=== PATIENT | female | born 1950 | race Caucasian/White ===

== ENCOUNTER → 2023-05-09 13:16 | Outpatient (REF) | payer MEDICARE, OTHER, SELFPAY | LOC: WOUND 13:16 | PROVIDERS: ATTENDING PHYSICIAN Surgery Plastic and Reconstructive Surgery; REFERRING PHYSICIAN Internal Medicine | DX: L97.812 Non-pressure chronic ulcer of other part of right lower leg with fat layer exposed (principal); S81.821S Laceration with foreign body, right lower leg, sequela; X58.XXXS Exposure to other specified factors, sequela | CPT/HCPCS: 11042; 97597; 99203 ==

== ENCOUNTER → 2023-05-18 09:34 | Outpatient (REF) | payer MEDICARE, OTHER, SELFPAY | LOC: WOUND 09:34 | PROVIDERS: ATTENDING PHYSICIAN Surgery; REFERRING PHYSICIAN Internal Medicine | DX: L97.812 Non-pressure chronic ulcer of other part of right lower leg with fat layer exposed (principal); S81.821A Laceration with foreign body, right lower leg, initial encounter; X58.XXXA Exposure to other specified factors, initial encounter | CPT/HCPCS: 11042; 97605 ==

== ENCOUNTER → 2023-06-05 09:31 | Outpatient (REF) | payer MEDICARE, OTHER, SELFPAY | LOC: WOUND 09:31 | PROVIDERS: ATTENDING PHYSICIAN Surgery; REFERRING PHYSICIAN Internal Medicine | DX: L97.812 Non-pressure chronic ulcer of other part of right lower leg with fat layer exposed (principal); S81.821S Laceration with foreign body, right lower leg, sequela; X58.XXXS Exposure to other specified factors, sequela | CPT/HCPCS: 11042; 97607 ==

== ENCOUNTER → 2023-06-12 09:40 | Outpatient (REF) | payer MEDICARE, OTHER, SELFPAY | LOC: WOUND 09:40 | PROVIDERS: ATTENDING PHYSICIAN Surgery; REFERRING PHYSICIAN Internal Medicine | DX: L97.812 Non-pressure chronic ulcer of other part of right lower leg with fat layer exposed (principal); S81.821A Laceration with foreign body, right lower leg, initial encounter; T14.8XXA Other injury of unspecified body region, initial encounter; X58.XXXA Exposure to other specified factors, initial encounter | CPT/HCPCS: 11042; 97607 ==

== ENCOUNTER 2023-06-14 20:45 | Observation (INO) | payer MEDICARE, OTHER, SELFPAY ==
[2023-06-14 13:49] VITALS: BP 152/88
[2023-06-14 14:12] LABS: % Basophils 0.6 % (0-2); % Eosinophils 1.8 % (0-6); % Immature Granulocytes 0.5 % (0-0.5); % Lymphocytes 36.2 % (20.5-51.1); % Monocytes 9.6 % (1.7-9.3); % Neutrophils 51.3 % (42.2-75.2); Absolute Basophils 0.1 10^3/uL (0-0.2); Absolute Eosinophils 0.2 10^3/uL (0-0.7); Absolute Monocytes 0.8 10^3/uL (0.1-0.6); Absolute Neutrophils 4.2 10^3/uL (1.4-6.5); Hematocrit 36.6 % (37.0-47.0); Hemoglobin 11.8 g/dL (12.0-16.0); Mean Corp Hgb Conc. 32.2 g/dL (33.0-37.0); Mean Corpuscular Hgb 29.4 pg (27.0-31.0); Mean Corpuscular Volume 91.3 fL (81.0-99.0); Mean Platelet Volume 9.4 fL (7.4-10.4); Nucleated Red Blood Cells % 0 %; Platelet Count 260 10^3/uL (130-400); Red Blood Cell Count 4.01 10^6/uL (4.20-5.40); Red Cell Dist. Width 16.4 % (11.5-14.5); White Blood Cell Count 8.3 10^3/uL (4.8-10.8)
[2023-06-14 14:19] LABS: INR 1.03; PT 13.5 Sec (11.4-14.6)
[2023-06-14 14:20] LABS: APTT 26.4 Sec (23.4-35.0)
[2023-06-14 14:30] LABS: ALT (SGPT) 30 U/L (0-35); AST (SGOT) 29 U/L (14-36); Albumin 3.8 g/dl (3.5-5.0); Alkaline Phosphatase 114 U/L (38-126); Blood Urea Nitrogen 16 mg/dl (7-17); Calcium 9.4 mg/dl (8.4-10.2); Carbon Dioxide 27 mmol/L (22-30); Chloride 107 mmol/L (98-107); Glucose 87 mg/dl (70-99); Potassium 4.3 mmol/L (3.5-5.1); Sodium 136 mmol/L (135-145); Total Bilirubin 0.5 mg/dl (0.2-1.3); Total Protein 6.8 g/dl (6.3-8.2); eGFR 59.12
--- NOTE | 2023-06-14 19:12 | ED.CVA ---
History of Present Illness
General
Chief Complaint: CVA/TIA Symptoms
Source: patient
Time Seen by Provider: 06/14/23 16:11
Onset of Stroke Symptoms
Onset of symptoms known: Yes
Date of onset of symptoms: 06/14/23
Time of onset of symptoms: 10:00
Travel History
Have you had any contact with someone who has COVID-19?: No
Do you have any symptoms of coronavirus? Fever > 100 degrees, chills, cough, shortness of breath, sore throat, loss of taste or smell, muscle aches, or headache?: No
History of Present Illness
History of Present Illness:
73-year-old female presents to the emergency room for evaluation after having an episode of not being able to see properly which last about 20 minutes. Patient states that she was looking at objects and could not read them. She tried to use her
phone to text someone and could not use the keyboard properly. After about 20 minutes symptoms resolved and she returned to normal. Patient was advised to come to the emergency room for further evaluation. Patient has a chronic wound on her right
leg and visiting nurse that was coming to check her leg was when the recommend she come to emergency room.
Past History
Past History
ED Past Medical History: CAD, GERD, HTN, Hypercholesterolemia and Other (Rheumatoid arthritis. Chronic inflammatory demyelinating polyneuropathy)
ED Past Surgical History: Cardiac (stents), Orthopedic (Bilateral knee replacements) and Other (cardiac stent x 2. Knee replacement.)
Social History
Tobacco: Non-smoker
Alcohol: None
Drug: None
Personal:
Living: with family
Employment: Retired
Family History
Family History: Other (n/c)
Phy Exam
Physical Exam
Physical Exam:
General: Awake, Alert, Oriented X3. No acute distress.
Vitals: unremarkable
Head: Atraumatic
Eyes: Pupils equal, EOMI
Throat: Airway intact, no exudates
Neck: Trachea midline
Lungs: Clear and equal b/l
Heart: Regular rate, no murmurs
Abd: Soft, Nontender, No pulsatile mass
Neuro: Cranial nerves intact, muscle strength equal bilaterally, cerebellar exam normal
Skin: Warm, dry, no rash
Extremities: pulses equal b/l, no edema
Course
Orders/Labs/Results
Orders:
Orders
06/14/23 14:02
Complete Blood Count/With Diff Urgent
Comprehensive Metabolic Panel Urgent
06/14/23 14:03
PTT Urgent
Prothrombin Time Urgent
06/14/23 16:25
CT Head W/o Iv Contrast Urgent
Comment:
Reason For Exam: confusion/visual chnage
06/14/23 17:21
Carotid US [US Cerebrovascular] Urgent
Comment:
Reason For Exam: tia symptoms
Abnormal Lab Results
06/14/23
14:02
RBC 4.01 L 10^6/uL
(4.20-5.40)
Hgb 11.8 L g/dL
(12.0-16.0)
Hct 36.6 L %
(37.0-47.0)
MCHC 32.2 L g/dL
(33.0-37.0)
RDW 16.4 H %
(11.5-14.5)
Absolute Monos (auto) 0.8 H 10^3/uL
(0.1-0.6)
Monocytes % 9.6 H %
(1.7-9.3)
06/14/23 14:02
06/14/23 14:02
Vital Signs
Initial and Last Documented VS:
Initial Vital Signs
Temp Pulse Resp BP Pulse Ox
98.0 F 63 18 152/88 99
06/14/23 13:49 06/14/23 13:49 06/14/23 13:49 06/14/23 13:49 06/14/23 13:49
Last Documented Vital Signs
Temp Pulse Resp BP Pulse Ox
98.0 F 63 18 152/88 99
06/14/23 13:49 06/14/23 13:49 06/14/23 13:49 06/14/23 13:49 06/14/23 13:49
MDM/Problems Addressed
Differential Diagnosis Includes:
TIA, retinal artery occlusion, ocular migraine
MDM/Problems Addressed:
Patient presents with visual changes which might reflect an ischemic event. CT without contrast is unremarkable. Discussed with neurology. Recommend TIA workup.
Chronic conditions affecting care: HTN and Other (Rheumatoid arthritis)
*Pulse Oximetry
Patient hypoxic: no
*Critical Care Note
Total Time (30-74mins, 75-104mins- exclusive of procedures): Not Applicable
ED Attending Note
-
Portions of this chart may have been created with voice recognition software.� Occasional wrong word or��sound alike� substitutions may have occurred due to the inherent limitations of voice recognition software.
Discharge Plan
Departure
Patient Disposition: Admit
Date of Disposition: 06/14/23
Time of Disposition: 19:13
Admit to: Telemetry
Presentation/result/management discussed w/ accepting MD/DO: Hospitalist
Condition: Fair
Discharge Problem:
Brain TIA
Prescriptions:
No Action
pantoprazole 40 MG tablet,delayed release (DR/EC)
40 mg PO DAILY
prednisone 5 MG tablet
5 mg PO DAILY@1200
Rx Instructions:
taken w/ 3mg = 8mg
cyanocobalamin (vitamin B-12) 1,000 MCG tablet
1,000 mcg PO DAILY@1600
aspirin 81 MG tablet,delayed release (DR/EC)
81 mg PO DAILY
prednisone 1 MG tablet
3 mg PO DAILY@1200
Rx Instructions:
taken w/ 5mg = 8mg
folic acid 1 MG tablet
1 mg PO QPM
metoprolol succinate 12.5 MG tablet extended release 24 hr
12.5 mg PO DAILY@1200
escitalopram oxalate 5 MG tablet
5 mg PO DAILY
cholecalciferol (vitamin D3) 1,000 UNITS tablet
1,000 units PO DAILY@1600
biotin 1 MG capsule
1 mg PO DAILY@1600
methotrexate sodium 2.5 MG tablet
10 mg PO WE@1800
Hold Instructions: Resume on 05/10/23.
nitroglycerin 0.4 MG tablet, sublingual
0.4 mg sublingual [id number] PRN (Reason: chest pain) Qty: 25 5RF
ezetimibe 10 mg tablet
10 mg PO QPM
amlodipine 5 MG tablet
5 mg PO DAILY Qty: 90 5RF
coenzyme Q10 [Co Q-10] 100 mg Capsule
100 mg PO DAILY@1600
Referrals:
Nereyda Ferrera MD [Family Provider] -
Interventions
Interventions:
*Risk Screen - Suicide Last Done: 06/14/23 13:49
*Neglect/Abuse Screening Last Done: 06/14/23 13:49
*ED COVID-19 Vaccine History Last Done: 06/14/23 13:49
ED- Pulmonary Assessment Last Done: 06/14/23 16:12
ED- Neurological Assessment Last Done: 06/14/23 16:28
ED- Cardiac Assessment Last Done: 06/14/23 16:12
--- NOTE | 2023-06-14 19:55 | HPS.HSE ---
Family Physician
-
Family Physician: Nereyda Ferrera
Chief Complaint
-
Reading difficulty
History of Present Illness
Patient is a 73y F with PMH significant for CIDP, RA and chronic immunosuppression who presents to ED complaining of reading difficulty this AM. Patient states that she has been feeling well lately. She went for a long walk this AM with her
dog. When she returned home around 10AM, she noted that she was having difficulty comprehending written words. Patient did not appreciate and speech slurring or deficits. No numbness / tingling / weakness / ataxia. Patient states that she could
'see' and 'read' the words, but was not able to understand what they meant.
She attempted to text a friend, but was unable to type into her phone / could not 'find' the letter 'K'.
Patient states that her symptoms lasted about 30 minutes in total. Since that time, she has been able to use her phone, read and comprehend writing with no difficulty.
Patient notes that her friend and her wound care nurse at home both encouraged her to present to the ED which she eventually did.
Patient reports a similar episode about 5 years ago. She was evaluated by her outpatient Neurologist at that time and completed an outpatient evaluation which patient says was 'unremarkable'.
In the ED at present, patient is resting comfortably and has no complaints.
Medical History
Past Medical History
Past Medical History: Reports Other
Additional Past Medical History:
CIDP
Rheumatoid Arthritis
Chronic Immunosuppression
Hypertension
ASCVD
GERD
Anxiety / Depression
Past Surgical History: Reports Other
Additional Past Surgical History:
PTCA with Stent x 2
Bilateral TKA
RLE wound Debridement (04/2023)
Social History
Tobacco: Non-smoker
Alcohol: None
Drug: None
Family History
Family History: Not pertinent
Allergies / Home Medications
Allergies reflects when Allergies were last updated in [facility].
Home Medications with original date entered in [facility]
Allergy/Medication List:
Allergies
Allergy/AdvReac Type Severity Reaction Status Date / Time
STEPHEN Inhibitors Allergy Unknown Verified 06/14/23 13:48
[Stephen Inhibitors]
iodine [Iodine] Allergy Hives Verified 06/14/23 13:48
potassium iodide Allergy Unknown Verified 06/14/23 13:48
[Potassium Iodide]
povidone-iodine Allergy Unknown Verified 06/14/23 13:48
Home Medications
pantoprazole 40 mg tablet,delayed release 40 mg PO DAILY Gastrointestinal issue 12/02/18
aspirin 81 mg tablet,delayed release 81 mg PO DAILY Blood clot prevention/tx 08/10/20
biotin 1 mg capsule 1 mg PO DAILY@1600 Supplement 08/10/20
cholecalciferol (vitamin D3) 25 mcg (1,000 unit) tablet 1,000 units PO DAILY@1600 Supplement 08/10/20
cyanocobalamin (vitamin B-12) 1,000 mcg tablet 1,000 mcg PO DAILY@1600 Supplement 08/10/20
escitalopram oxalate 5 mg tablet 5 mg PO DAILY Anxiety 08/10/20
folic acid 1 mg tablet 1 mg PO QPM Supplement 08/10/20
metoprolol succinate 25 mg tablet,extended release 24 hr 12.5 mg PO DAILY@1200 Cad/PAC's 08/10/20
prednisone 1 mg tablet 3 mg PO DAILY@1200 chronic inflammatory demylenating polyneuropathy 08/10/20
prednisone 5 mg tablet 5 mg PO DAILY@1200 chronic inflammatory demyelinating polyneuropathy 08/10/20
methotrexate sodium 2.5 mg tablet 10 mg PO WE@1800 rheumatoid arthritis 10/23/20
nitroglycerin 0.4 mg sublingual tablet 0.4 mg sublingual [id number] PRN chest pain #25 tabs 10/23/20
ezetimibe 10 mg tablet 10 mg PO QPM High Cholesterol 04/19/23
amlodipine 5 mg tablet 5 mg PO DAILY Blood pressure #90 tabs 04/21/23
coenzyme Q10 100 mg capsule (Co Q-10) 100 mg PO DAILY@1600 Supplement 06/14/23
Review of Systems
-
History Source: Patient
Constitutional: Denies Fever or Chills
Respiratory: Denies Cough or Trouble Breathing
Cardiac: Denies Chest Pain or Palpitations
Abdomen/GI: Denies Abdominal Pain, Nausea, Vomiting or Diarrhea
: Denies Dysuria, Frequency or Flank Pain
Musculoskeletal: Denies Joint Pain or Edema
Skin: Reports Other (RLE Wound)
Neurological: Denies Dizzy, Headache, Weakness or Numbness
Psych: Denies Depression or Anxiety
Physical Exam
Vital Signs
Vital Signs
Temp Pulse Resp BP Pulse Ox
98.0 F 63 18 152/88 99
06/14/23 13:49 06/14/23 13:49 06/14/23 13:49 06/14/23 13:49 06/14/23 13:49
Physical Exam
General: Other (73y F in no acute distress.)
HEENT: Moist mucous membranes and PERRLA
Respiratory: Clear; No Wheezes, Rales or Rhonchi
Cardiac: S1/S2 and Regular Rhythm; No Murmur
GI: Soft, Non Tender, Non Distended and Normal Bowel Sounds
Musculoskeletal: No Clubbing, No Cyanosis and Other (Trace edema R > L ankles.)
Skin: Other (Wound RLE with wound vac in place. No surrounding erythema, induration, etc.)
Neuro: AO x 3 and Nonfocal/grossly intact
Laboratory Results
-
06/14/23 14:02
06/14/23 14:02
Laboratory Results
PT 13.5 Sec (11.4-14.6) 06/14/23 14:03
INR 1.03 06/14/23 14:03
APTT 26.4 Sec (23.4-35.0) 06/14/23 14:03
Total Bilirubin 0.5 mg/dl (0.2-1.3) 06/14/23 14:02
AST 29 U/L (14-36) 06/14/23 14:02
ALT 30 U/L (0-35) 06/14/23 14:02
Alkaline Phosphatase 114 U/L (38-126) 06/14/23 14:02
Impression/Plan
-
A/P: Patient is a 73y F with PMH significant for CIDP, RA and hypertension who presents to ED for evaluation of reading difficulty earlier today.
Reading Difficulty
- Observe overnight for further evaluation and treatment.
- Monitor on tele, follow serial neurologic exams.
- Neuro evaluation in the AM.
- Check MR brain in the AM.
- Results from prior episode reviewed (2019).
- MRI at that time:
IMPRESSION: Numerous foci of old cerebral microhemorrhage, distribution as described. The most common etiologies for cerebral microhemorrhages are chronic hypertensive encephalopathy and amyloid angiopathy. Distribution is not considered
characteristic for either of these processes alone. Perhaps this is a combination of these 2 processes.
Moderate to severe T2 and FLAIR white matter hyperintensities, which become confluent in the periventricular region. These hyperintensities are not entirely specific, most commonly seen in association with small vessel ischemic disease, which would
be advanced for this patient's age of 69 years. Differential considerations include demyelinating process such as multiple sclerosis or Lyme disease. Vasculitis is another consideration.
There is no MR evidence of a focal area of infarction.
Mild diffuse atrophy.
- Continue ASA alone for now given concern for microhemorrhages / amyloidosis.
- Monitor for any new / recurrent symptoms.
- Speech eval in the AM.
- Check AM lipids, etc.
ASCVD
Benign Hypertension
- Stable. Continue current medications and adjust as needed for BP control.
RLE Wound
- Initially admitted here 04/2023 following injury.
- Debridement done at that time and wound vac in place since.
- Wound Care evaluation for continued local care / vac management.
CIDP
RA
- Stable. Continue daily prednisone without changes.
- Monitor for any new / worsening symptoms.
Anxiety / Depression
- Stable. Continue Lexapro.
DVT Prophylaxis: No SCDs given LE wound / vac. No pharm prophylaxis given risk of CATERING ADMINISTRATIVE ASSISTANT bleeding.
Code Status: Full
[2023-06-14] MEDS: PLAVIX 75 MG PO (20:09)
[2023-06-14 20:13] VITALS: BP 155/81
[2023-06-14 21:43] VITALS: BP 155/77; BMI 24.0
[2023-06-14 22:51] LABS: TSH Reflex To Free T4 0.94 uIU/ml (0.47-4.68)
[2023-06-14] MEDS: FOLVITE 1 MG PO (22:59)
[2023-06-14] MEDS: METHOTREXATE 10 MG PO (22:59)
[2023-06-14 23:24] VITALS: BP 135/89; BP 139/76; BP 150/90; PULSE 56; PULSE 62; PULSE 70
[2023-06-15 03:56] VITALS: BP 136/81
--- NOTE | 2023-06-15 05:24 | PTCARENOTE ---
Pt received from ED around 2134. Ambulated from stretcher to bed independently without incident. Telemetry = SR. Pt with own wound vac to R lower medial leg set to - 125 mmHg. Oriented to surroundings and plan of care discussed. Admission and
assessment completed. Neuro check WNL, NIHSS = 0. Pt due for weekly dose of methrotrexate and has not taken yet. [facility] covering house contacted, electronic orders received (refer to JUL). Pt offers no complaints. #20 LAC INT patent. Call vásquez
within reach. Will continue to closely monitor.
[2023-06-15 05:37] VITALS: BMI 23.8
--- NOTE | 2023-06-15 07:12 | CON.NEURO4 ---
Consultation - Neurology 4
-
CONSULTING PHYSICIAN: Gillian Molina
REFERRING PHYSICIAN: ER
DICTATED BY: Gillian Molina
DATE/TIME OF REQUEST: 06/15/23
DATE/TIME OF CONSULTATION: 06/15/23
Reason for Consultation: Concern for TIA
History of Present Illness:
Patient is a 73-year-old woman with a past medical history of hypertension, coronary artery disease, CIDP rheumatoid arthritis on immunosuppression presented to hospital because of episode of abnormal behavior and possible confusion.
Patient describes the episode as some changes in vision with some tilting of kitchen drawers and cabinets in her vision and then having a lot of difficulty selecting a particular letter on her phone, she was talking to her friend which was concerned
about her behaviors with concern for potential stroke or other brain problems.
Patient reports she has had intermittent speech difficulty after a divorce.
She sees a neurologist regularly for history of CIDP and she does relate that she thinks that the neurologist had told her about a brain MRI abnormality suggestive of amyloid in the.
Currently patient feels back to normal no complaints currently.
Past Medical History: CIDP, Rheumatoid arthritis, hypertension, GERD, Anxiety/depression, CAD s/p stent
Surgical History: Bilateral TKA, RLE wound debridement, 2x coronary stents
Family History: Non-contributory
Social History: Retired, lives on her own, no tobacco or alcohol
Review of Symptoms:
Patient denies any fever, headache, chest pain, shortness of breath, GI or symptoms.
Physical Exam:
Well-appearing middle-aged woman no acute distress no signs of head or neck trauma oropharynx clear neck supple no masses heart rate regular breathing unlabored abdomen soft nontender no lower extremity edema or rash
Neurologic Examination:
The patient is awake, alert and oriented x 3. He is able to follow commands and answer questions appropriately. There is no aphasia or dysarthria. On cranial nerve assessment, pupils are 3 mm bilateral, round and reactive to light and
accommodation. Visual hahn are full. Extraocular movements are intact. Facial sensations are intact and bilaterally symmetrical, there is no facial asymmetry. Hearing is intact bilaterally to normal conversation volume. Tongue palate and uvula
are midline. Sternocleidomastoid strengths are full bilaterally. Motor strengths are 5/5 bilateral upper and lower extremities on medical research Stebbins scale. There is no drift or involuntary movement noted. Absent reflexes throughout.
Coordination is intact by finger to nose bilaterally.
Neuro Imaging: CT head noncontrast with no acute infarct or hemorrhage no masses or edema, there is moderate white matter microangiopathy as seen with hypodensities in the white matter of the hemispheres bilaterally
MRI brain highly suggestive of amyloid angiopathy with numerous chronic microhemorrhages in subcortical and cortical areas
Impressions
1. Episode of confusion may have been due to a known amyloid angiopathy of the brain, may be also producing some mild cognitive impairment. The episode is less typical for TIA. Not concerned for seizure.
2. MRI with no acute stroke
3.
4.
Recommendations:
1. Okay for continuing aspirin given a history of coronary artery disease and stent as strong indications for antiplatelet therapy and patient has never had an overt intracranial hemorrhage
2. Minimize sedating medications
3. Goal normotension
4. Stop clopidogrel.
5. Continue to follow with her outpatient neurologist
6. Not recommending any further neurologic workup or monitoring
Discussed patient care with: Patient
NIH Stroke Score
Subsequent NIH Scale
Date of Subsequent NIH Scale: 06/15/23
Time of Subsequent NIH Scale: 12:49
NIH Stroke Score
Level of Consciousness: 0 - Alert
LOC Questions: 0-Answers both correctly
LOC Commands: 0-Performs both correctly
Best Horizontal Gaze: 0-Normal
Visual Hahn: 0=Normal, no visual loss
Facial Palsy: 0=Normal, symmetrical
Motor - Right Arm: 0=No drift 10 seconds
Motor - Left Arm: 0=No drift 10 seconds
Motor - Right Le-No drift 5 seconds
Motor - Left Le-No drift 5 seconds
Limb Ataxia: 0-Absent
Sensation: 0-Normal
Best Language: 0-No aphasia
Dysarthria: 0-Normal
Extinction and Inattention: 0-No abnormality
Total Score:: 0
Home Medications
-
Home Medications
pantoprazole 40 mg tablet,delayed release 40 mg PO DAILY Gastrointestinal issue 12/02/18
aspirin 81 mg tablet,delayed release 81 mg PO DAILY Blood clot prevention/tx 08/10/20
biotin 1 mg capsule 1 mg PO DAILY@1600 Supplement 08/10/20
cholecalciferol (vitamin D3) 25 mcg (1,000 unit) tablet 1,000 units PO DAILY@1600 Supplement 08/10/20
cyanocobalamin (vitamin B-12) 1,000 mcg tablet 1,000 mcg PO DAILY@1600 Supplement 08/10/20
escitalopram oxalate 5 mg tablet 5 mg PO DAILY Anxiety 08/10/20
folic acid 1 mg tablet 1 mg PO QPM Supplement 08/10/20
metoprolol succinate 25 mg tablet,extended release 24 hr 12.5 mg PO DAILY@1200 Cad/PAC's 08/10/20
prednisone 1 mg tablet 3 mg PO DAILY@1200 chronic inflammatory demylenating polyneuropathy 08/10/20
prednisone 5 mg tablet 5 mg PO DAILY@1200 chronic inflammatory demyelinating polyneuropathy 08/10/20
methotrexate sodium 2.5 mg tablet 10 mg PO WE@1800 rheumatoid arthritis 10/23/20
nitroglycerin 0.4 mg sublingual tablet 0.4 mg sublingual [id number] PRN chest pain #25 tabs 10/23/20
ezetimibe 10 mg tablet 10 mg PO QPM High Cholesterol 04/19/23
amlodipine 5 mg tablet 5 mg PO DAILY Blood pressure #90 tabs 04/21/23
coenzyme Q10 100 mg capsule (Co Q-10) 100 mg PO DAILY@1600 Supplement 06/14/23
Vital Signs / Labs
-
Vital Signs and Labs:
Temp Pulse Resp BP Pulse Ox
97.9 F 66 18 136/81 95
06/15/23 03:56 06/15/23 03:56 06/15/23 03:56 06/15/23 03:56 06/15/23 03:56
06/14/23
14:02
RBC 4.01 L
Hgb 11.8 L
Hct 36.6 L
MCHC 32.2 L
RDW 16.4 H
Absolute Monos (auto) 0.8 H
Monocytes % 9.6 H
[2023-06-15] MEDS: PLAVIX 75 MG PO (07:43)
[2023-06-15] MEDS: LEXAPRO 5 MG PO (07:43)
[2023-06-15] MEDS: ASPIR LOW (ENTERIC COATED) 81 MG PO (07:43)
[2023-06-15] MEDS: PROTONIX 40 MG PO (07:43)
[2023-06-15] MEDS: NORVASC 5 MG PO (07:43)
[2023-06-15 07:54] LABS: Hemoglobin 11.5 g/dL (12.0-16.0); Mean Corp Hgb Conc. 32.9 g/dL (33.0-37.0); Mean Corpuscular Hgb 29.3 pg (27.0-31.0); Mean Corpuscular Volume 89.3 fL (81.0-99.0); Mean Platelet Volume 9.8 fL (7.4-10.4); Platelet Count 264 10^3/uL (130-400); Red Blood Cell Count 3.92 10^6/uL (4.20-5.40); Red Cell Dist. Width 16.4 % (11.5-14.5)
--- NOTE | 2023-06-15 08:33 | VNURNOTE ---
Patient is current with [facility] since 04/23 with [facility] for wound care. Will monitor progress and plan at discharge.
[2023-06-15 08:35] LABS: Blood Urea Nitrogen 12 mg/dl (7-17); Calcium 8.7 mg/dl (8.4-10.2); Carbon Dioxide 26 mmol/L (22-30); Chloride 109 mmol/L (98-107); Estimated Creatinine Clearance 45 ml/min; Glucose 73 mg/dl (70-99); HDL Cholesterol 97 mg/dl; LDL Cholesterol, Calculated 67 mg/dl; Potassium 4.5 mmol/L (3.5-5.1); Sodium 136 mmol/L (135-145); Total Cholesterol 180 mg/dl (50-199); Triglyceride 84 mg/dl (10-149); Very Low Density Lipoprotein 16 mg/dl (0-30); eGFR > 60.00
--- NOTE | 2023-06-15 11:15 | WOUNDNOTE ---
[facility] RN note: Patient admitted with TIA. Patient current with [facility] for wound vac dressings. Last changed yesterday by [facility]. Patient last seen by Dr. Kolb at [facility] on 06/12/23.
See H&P for complete history.
PMH: CIDP, RA (prednisone), HTN, ASCVD, anxiety, PTCA with stent x 2, RLE wound s/p bedside debridement 04/20/23.
Wound Location and type/assessment: Patient admitted with: R anterior LE wound with wound vac.
Appetite: on regular diet.
Pressure redistribution devices in place: Accumax mattress.
Plan: Spoke with Dr. Kolb this am who stated can leave vac dressing in place until tomorrow when next vac dressing is due to be changed. RLE vac dressing intact without erythema, home vac setting at 125mmhg.
Will confirm orders with hospitalist and updated RN Margy.
Care plan to be updated and will follow as needed.
[2023-06-15 11:44] VITALS: BP 110/70; BP 128/89; BP 154/79; PULSE 62; PULSE 65; PULSE 83
[2023-06-15] MEDS: DELTASONE 5 MG PO (12:49)
[2023-06-15] MEDS: TOPROL XL 12.5 MG PO (12:49)
[2023-06-15] MEDS: DELTASONE 3 MG PO (12:49)
--- NOTE | 2023-06-15 13:03 | W.PN.HOSP.TC ---
Addendum entered and electronically signed by Cortes Jaimes MD 06/18/23 15:22:
[id number]
Original Note:
Today's Communication/Plan
-
asa
stop clopidogrel
f/u outpatient neurology
Assessment / Plan
Assessment / Plan
Physical Exam
General: Other (73y F in no acute distress.)
HEENT: Moist mucous membranes and PERRLA
Respiratory: Clear; No Wheezes, Rales or Rhonchi
Cardiac: S1/S2 and Regular Rhythm; No Murmur
GI: Soft, Non Tender, Non Distended and Normal Bowel Sounds
Musculoskeletal: No Clubbing, No Cyanosis and Other (Trace edema R > L ankles.)
Skin: Other (Wound RLE with wound vac in place.� No surrounding erythema, induration, etc.)
Neuro: AO x 3 and Nonfocal/grossly intact
A/P:� Patient is a 73y F with PMH significant for CIDP, RA and hypertension who presents to ED for evaluation of reading difficulty earlier today.
Reading Difficulty
Possibly secondary to amyloid angiopathy
Mild cognitive impairment
� Episode lasted for TIA, less likely seizure
� MRI with no acute stroke
� MRI with evidence of possible amyloid angiopathy of the brain
� Continue aspirin given CAD, never has had over intracranial hemorrhage
� Normotension
� Stop clopidogrel
- Follow-up outpatient neurology
-Speech eval
ASCVD
Benign Hypertension
�- Stable.� Continue current medications and adjust as needed for BP control.
RLE Wound
�- Initially admitted here 04/2023 following injury.
�- Debridement done at that time and wound vac in place since.
�- Wound Care evaluation for continued local care / vac management.
CIDP
RA
�- Stable.� Continue daily prednisone without changes.
�- Monitor for any new / worsening symptoms.
Anxiety / Depression
�- Stable.� Continue Lexapro.
DVT Prophylaxis: No SCDs given LE wound / vac.� No pharm prophylaxis given risk of HEAVY TRUCK TECHNICIAN bleeding.
Code Status: Full
More than 30 minutes spent in discharge including
Final examination of the patient
Summarizing hospital stay
Instructions for continuing care to all relevant caregivers
Preparation of discharge records, prescriptions, and referral forms
Total time spent (35 in minutes):
Anticipated Discharge: Today
Subjective/Interval History
-
Date of Service: June 15, 2023
no acute events
Objective Data
-
Labs:
Laboratory Results
06/15/23
06:26
WBC 6.0
Hgb 11.5 L
Hct 35.0 L
Plt Count 264
Sodium 136
Potassium 4.5
Chloride 109 H
Carbon Dioxide 26
BUN 12
Creatinine 0.9
Glucose 73
Calcium 8.7
Vital Signs:
Vital Signs
Temp Pulse Resp BP Pulse Ox
97.8 F 66 18 136/81 95
06/15/23 11:44 06/15/23 03:56 06/15/23 11:44 06/15/23 03:56 06/15/23 03:56
I&O
06/14/23 06/15/23 06/16/23
06:59 06:59 06:59
Intake Total 120 / 120
Balance 120 / 120
Review of Systems
-
History Source: Patient
All other systems: Not reviewed unless documented
Data Reviewed
-
CT Scan: Image personally visualized and interpreted and Report Reviewed by me
MRI: Report Reviewed by me
Labs: Labs Reviewed by me
--- NOTE | 2023-06-15 13:08 | W.DS.TRANS ---
DC Summary - Payment Processor
-
Discharge Instructions:
Discharge Diagnosis/Procedures Episode of confusion may have been due to a
known amyloid angiopathy of the brain, may be
also producing some mild cognitive impairment.
Diet Low Cholesterol,Low Fat
Activity As tolerated
Instructions:
Stand-Alone Forms:
Changes to Home Medications: Yes
Discharge Medications:
DC Medications w/original date entered in [email or web address]
pantoprazole 40 mg tablet,delayed release 40 mg PO DAILY Gastrointestinal issue 12/02/18
aspirin 81 mg tablet,delayed release 81 mg PO DAILY Blood clot prevention/tx 08/10/20
biotin 1 mg capsule 1 mg PO DAILY@1600 Supplement 08/10/20
cholecalciferol (vitamin D3) 25 mcg (1,000 unit) tablet 1,000 units PO DAILY@1600 Supplement 08/10/20
cyanocobalamin (vitamin B-12) 1,000 mcg tablet 1,000 mcg PO DAILY@1600 Supplement 08/10/20
escitalopram oxalate 5 mg tablet 5 mg PO DAILY Anxiety 08/10/20
folic acid 1 mg tablet 1 mg PO QPM Supplement 08/10/20
metoprolol succinate 25 mg tablet,extended release 24 hr 12.5 mg PO DAILY@1200 Cad/PAC's 08/10/20
prednisone 1 mg tablet 3 mg PO DAILY@1200 chronic inflammatory demylenating polyneuropathy 08/10/20
prednisone 5 mg tablet 5 mg PO DAILY@1200 chronic inflammatory demyelinating polyneuropathy 08/10/20
methotrexate sodium 2.5 mg tablet 10 mg PO WE@1800 rheumatoid arthritis 10/23/20
nitroglycerin 0.4 mg sublingual tablet 0.4 mg sublingual [id number] PRN chest pain #25 tabs 10/23/20
ezetimibe 10 mg tablet 10 mg PO QPM High Cholesterol 04/19/23
amlodipine 5 mg tablet 5 mg PO DAILY Blood pressure #90 tabs 04/21/23
coenzyme Q10 100 mg capsule (Co Q-10) 100 mg PO DAILY@1600 Supplement 06/14/23
Home Medication Changes
Stop Clopigrel if using
Pending Results: No
--- NOTE | 2023-06-15 14:28 | CM ---
Met with patient at bedside; initial assessment completed
KABA explained and signed
Pharmacy: [facility]
Patient lives alone in one floor apartment; elevator access; bathroom has tub with shower and grab bar
Son lives about an hour away; reports that she has friends nearby who can help her if she needs assistance
PLOF: reports she is independent with ambulation and ADLs; can do stairs if necessary; drives
SNF/Rehab utilization history: none
Home Care: will resume home care with [facility]
Transport: friend will provide ride home
Plan: discharge to home today with home care services from [facility]
--- NOTE | 2023-06-15 15:26 | VNURNOTE ---
[facility] intake notified of discharge, patient in OBS status.
== END 2023-06-15 14:51 | disposition home health service (06) ==
LOC: 4 WEST ACU 20:45
PROVIDERS: Emergency Medicine; ADMITTING PHYSICIAN Hospitalist; ATTENDING PHYSICIAN Internal Medicine; EMERGENCY PHYSICIAN Emergency Medicine; FAMILY PHYSICIAN Internal Medicine; OTHER PHYSICIAN Student in an Organized Health Care Education/Training Program
DX: R41.0 Disorientation, unspecified (principal); I10 Essential (primary) hypertension; M06.9 Rheumatoid arthritis, unspecified; E78.00 Pure hypercholesterolemia, unspecified; K21.9 Gastro-esophageal reflux disease without esophagitis; G61.81 Chronic inflammatory demyelinating polyneuritis; S81.831D Puncture wound without foreign body, right lower leg, subsequent encounter; X58.XXXD Exposure to other specified factors, subsequent encounter; D84.821 Immunodeficiency due to drugs; I25.10 Atherosclerotic heart disease of native coronary artery without angina pectoris; R93.0 Abnormal findings on diagnostic imaging of skull and head, not elsewhere classified; Z95.5 Presence of coronary angioplasty implant and graft; Z96.653 Presence of artificial knee joint, bilateral; Z79.52 Long term (current) use of systemic steroids; Z79.82 Long term (current) use of aspirin; Z79.69 Long term (current) use of other immunomodulators and immunosuppressants; F41.9 Anxiety disorder, unspecified; F32.A Depression, unspecified; Z88.8 Allergy status to other drugs, medicaments and biological substances; Z91.041 Radiographic dye allergy status
CPT/HCPCS: 70450; 70544; 70551; 80048; 80053; 80061; 84443; 85025; 85027; 85610; 85730; 93005; 93880; 99285; G0378; J8610

== ENCOUNTER → 2023-06-19 13:31 | Outpatient (REF) | payer MEDICARE, OTHER, SELFPAY | LOC: WOUND 13:31 | PROVIDERS: ATTENDING PHYSICIAN Surgery; REFERRING PHYSICIAN Internal Medicine | DX: L97.812 Non-pressure chronic ulcer of other part of right lower leg with fat layer exposed (principal); S81.821S Laceration with foreign body, right lower leg, sequela; X58.XXXS Exposure to other specified factors, sequela | CPT/HCPCS: 11042; 97605 ==

== ENCOUNTER → 2023-06-27 13:46 | Outpatient (REF) | payer MEDICARE, OTHER, SELFPAY | LOC: WOUND 13:46 | PROVIDERS: ATTENDING PHYSICIAN Surgery; FAMILY PHYSICIAN Internal Medicine | DX: S81.821A Laceration with foreign body, right lower leg, initial encounter (principal); L97.812 Non-pressure chronic ulcer of other part of right lower leg with fat layer exposed; T14.8XXA Other injury of unspecified body region, initial encounter; W54.0XXA Bitten by dog, initial encounter | CPT/HCPCS: 11042 ==

== ENCOUNTER → 2023-07-03 13:04 | Outpatient (REF) | payer MEDICARE, OTHER, SELFPAY | LOC: WOUND 13:04 | PROVIDERS: ATTENDING PHYSICIAN Surgery; FAMILY PHYSICIAN Internal Medicine | DX: S81.821A Laceration with foreign body, right lower leg, initial encounter (principal); L97.812 Non-pressure chronic ulcer of other part of right lower leg with fat layer exposed; T14.8XXA Other injury of unspecified body region, initial encounter; X58.XXXA Exposure to other specified factors, initial encounter | CPT/HCPCS: 11042 ==

== ENCOUNTER → 2023-07-10 13:29 | Outpatient (REF) | payer MEDICARE, OTHER, SELFPAY | LOC: WOUND 13:29 | PROVIDERS: ATTENDING PHYSICIAN Surgery; FAMILY PHYSICIAN Internal Medicine | DX: L97.812 Non-pressure chronic ulcer of other part of right lower leg with fat layer exposed (principal); S81.821A Laceration with foreign body, right lower leg, initial encounter; T14.8XXA Other injury of unspecified body region, initial encounter; X58.XXXA Exposure to other specified factors, initial encounter | CPT/HCPCS: 11042 ==

== ENCOUNTER → 2023-07-17 13:23 | Outpatient (REF) | payer MEDICARE, OTHER, SELFPAY | LOC: WOUND 13:23 | PROVIDERS: ATTENDING PHYSICIAN Surgery; FAMILY PHYSICIAN Internal Medicine | DX: L97.812 Non-pressure chronic ulcer of other part of right lower leg with fat layer exposed (principal); S81.821A Laceration with foreign body, right lower leg, initial encounter; T14.8XXA Other injury of unspecified body region, initial encounter; X58.XXXA Exposure to other specified factors, initial encounter | CPT/HCPCS: 11042 ==

== ENCOUNTER → 2023-07-24 13:43 | Outpatient (REF) | payer MEDICARE, OTHER, SELFPAY | LOC: WOUND 13:43 | PROVIDERS: ATTENDING PHYSICIAN Surgery; FAMILY PHYSICIAN Internal Medicine | DX: S81.821A Laceration with foreign body, right lower leg, initial encounter (principal); L97.812 Non-pressure chronic ulcer of other part of right lower leg with fat layer exposed; T14.8XXA Other injury of unspecified body region, initial encounter; X58.XXXA Exposure to other specified factors, initial encounter | CPT/HCPCS: 11042 ==

== ENCOUNTER → 2023-07-31 13:57 | Outpatient (REF) | payer MEDICARE, OTHER, SELFPAY | LOC: WOUND 13:57 | PROVIDERS: ATTENDING PHYSICIAN Surgery; FAMILY PHYSICIAN Internal Medicine | DX: L97.812 Non-pressure chronic ulcer of other part of right lower leg with fat layer exposed (principal); S81.821A Laceration with foreign body, right lower leg, initial encounter; T14.8XXA Other injury of unspecified body region, initial encounter; W54.0XXA Bitten by dog, initial encounter | CPT/HCPCS: 11042 ==

== ENCOUNTER → 2023-08-07 10:25 | Outpatient (REF) | payer MEDICARE, OTHER, SELFPAY | LOC: WOUND 10:25 | PROVIDERS: ATTENDING PHYSICIAN Surgery; FAMILY PHYSICIAN Internal Medicine | DX: L97.812 Non-pressure chronic ulcer of other part of right lower leg with fat layer exposed (principal); S81.821A Laceration with foreign body, right lower leg, initial encounter; T14.8XXA Other injury of unspecified body region, initial encounter; W54.0XXA Bitten by dog, initial encounter | CPT/HCPCS: 11042 ==

== ENCOUNTER → 2023-08-24 10:15 | Outpatient (REF) | payer MEDICARE, OTHER, SELFPAY | LOC: WOUND 10:15 | PROVIDERS: ATTENDING PHYSICIAN Surgery; FAMILY PHYSICIAN Internal Medicine | DX: L97.812 Non-pressure chronic ulcer of other part of right lower leg with fat layer exposed (principal); S81.821A Laceration with foreign body, right lower leg, initial encounter; T14.8XXA Other injury of unspecified body region, initial encounter; W54.0XXA Bitten by dog, initial encounter | CPT/HCPCS: 99212 ==

== ENCOUNTER → 2023-09-26 10:07 | Outpatient (REF) | payer MEDICARE, OTHER, SELFPAY ==
[2023-09-26 11:47] LABS: % Basophils 0.9 % (0-2); % Eosinophils 2.8 % (0-6); % Immature Granulocytes 0.9 % (0-0.5); % Lymphocytes 32.1 % (20.5-51.1); % Monocytes 9.8 % (1.7-9.3); % Neutrophils 53.5 % (42.2-75.2); Absolute Basophils 0.1 10^3/uL (0-0.2); Absolute Eosinophils 0.2 10^3/uL (0-0.7); Absolute Immature Granulocytes 0.1 10^3/uL (0-0.05); Absolute Lymphocytes 2.5 10^3/uL (1.2-3.4); Absolute Monocytes 0.8 10^3/uL (0.1-0.6); Absolute Neutrophils 4.2 10^3/uL (1.4-6.5); Hemoglobin 11.9 g/dL (12.0-16.0); Mean Corp Hgb Conc. 33.1 g/dL (33.0-37.0); Mean Corpuscular Hgb 29.3 pg (27.0-31.0); Mean Corpuscular Volume 88.7 fL (81.0-99.0); Mean Platelet Volume 10.5 fL (7.4-10.4); Nucleated Red Blood Cells % 0 %; Platelet Count 313 10^3/uL (130-400); Red Blood Cell Count 4.06 10^6/uL (4.20-5.40); Red Cell Dist. Width 18.3 % (11.5-14.5); White Blood Cell Count 7.9 10^3/uL (4.8-10.8)
[2023-09-26 12:16] LABS: ALT (SGPT) 21 U/L (0-35); AST (SGOT) 27 U/L (14-36); Albumin 3.7 g/dl (3.5-5.0); Alkaline Phosphatase 102 U/L (38-126); Blood Urea Nitrogen 20 mg/dl (7-17); Calcium 9.8 mg/dl (8.4-10.2); Carbon Dioxide 27 mmol/L (22-30); Chloride 104 mmol/L (98-107); Glucose 82 mg/dl (70-99); Potassium 4.8 mmol/L (3.5-5.1); Sodium 139 mmol/L (135-145); Total Bilirubin 0.6 mg/dl (0.2-1.3); Total Protein 6.6 g/dl (6.3-8.2); eGFR 52.73
[2023-09-26 13:23] LABS: Folate > 20.0 ng/ml (2.76-20); Vitamin B12 > 1000 pg/ml (239-931)
== END ==
LOC: RAD 10:07
PROVIDERS: ATTENDING PHYSICIAN Internal Medicine
DX: G62.9 Polyneuropathy, unspecified (principal); E78.2 Mixed hyperlipidemia; I10 Essential (primary) hypertension; M79.662 Pain in left lower leg; D51.9 Vitamin B12 deficiency anemia, unspecified
CPT/HCPCS: 36415; 73590; 80053; 82607; 82746; 85025

== ENCOUNTER → 2023-10-17 06:43 | Outpatient (REF) | payer MEDICARE, OTHER, SELFPAY ==
[2023-10-17 08:15] LABS: % Basophils 0.4 % (0-2); % Eosinophils 1.8 % (0-6); % Immature Granulocytes 0.3 % (0-0.5); % Lymphocytes 33.6 % (20.5-51.1); % Monocytes 8.7 % (1.7-9.3); % Neutrophils 55.2 % (42.2-75.2); Absolute Eosinophils 0.1 10^3/uL (0-0.7); Absolute Lymphocytes 2.7 10^3/uL (1.2-3.4); Absolute Monocytes 0.7 10^3/uL (0.1-0.6); Absolute Neutrophils 4.4 10^3/uL (1.4-6.5); Hematocrit 35.9 % (37.0-47.0); Hemoglobin 11.5 g/dL (12.0-16.0); Mean Corpuscular Volume 90.7 fL (81.0-99.0); Nucleated Red Blood Cells % 0 %; Platelet Count 258 10^3/uL (130-400); Red Blood Cell Count 3.96 10^6/uL (4.20-5.40); Red Cell Dist. Width 18.4 % (11.5-14.5)
[2023-10-17 08:38] LABS: Erythrocyte Sed Rate 20 mm/hour (0-20)
[2023-10-17 09:13] LABS: C-Reactive Protein < 5.00 mg/L (0.0-10.00)
[2023-10-17 09:22] LABS: ALT (SGPT) 27 U/L (0-35); AST (SGOT) 29 U/L (14-36); Albumin 3.7 g/dl (3.5-5.0); Alkaline Phosphatase 87 U/L (38-126); Blood Urea Nitrogen 18 mg/dl (7-17); Calcium 10.1 mg/dl (8.4-10.2); Carbon Dioxide 30 mmol/L (22-30); Chloride 105 mmol/L (98-107); Glucose 78 mg/dl (70-99); Sodium 140 mmol/L (135-145); Total Bilirubin 0.6 mg/dl (0.2-1.3); Total Protein 6.7 g/dl (6.3-8.2); eGFR 52.73
[2023-10-17 09:28] LABS: Potassium 4.9 mmol/L (3.5-5.1)
== END ==
LOC: REG 06:43
PROVIDERS: ATTENDING PHYSICIAN Internal Medicine Rheumatology; FAMILY PHYSICIAN Internal Medicine
DX: M05.9 Rheumatoid arthritis with rheumatoid factor, unspecified (principal); Z51.81 Encounter for therapeutic drug level monitoring
CPT/HCPCS: 36415; 80053; 85025; 85652; 86140

== ENCOUNTER → 2023-11-21 06:35 | Outpatient (REF) | payer MEDICARE, OTHER, SELFPAY | LOC: MRI 06:35 | PROVIDERS: ATTENDING PHYSICIAN Psychiatry & Neurology Neurology; FAMILY PHYSICIAN Internal Medicine | DX: M47.12 Other spondylosis with myelopathy, cervical region (principal) | CPT/HCPCS: 72141 ==

== ENCOUNTER → 2024-01-08 06:41 | Outpatient (REF) | payer MEDICARE, OTHER, SELFPAY ==
[2024-01-08 08:18] LABS: % Basophils 0.5 % (0-2); % Immature Granulocytes 0.5 % (0-0.5); % Lymphocytes 25.4 % (20.5-51.1); % Monocytes 9.8 % (1.7-9.3); % Neutrophils 61.8 % (42.2-75.2); Absolute Basophils 0.1 10^3/uL (0-0.2); Absolute Eosinophils 0.2 10^3/uL (0-0.7); Absolute Immature Granulocytes 0.1 10^3/uL (0-0.05); Absolute Lymphocytes 2.3 10^3/uL (1.2-3.4); Absolute Monocytes 0.9 10^3/uL (0.1-0.6); Absolute Neutrophils 5.6 10^3/uL (1.4-6.5); Hematocrit 36.8 % (37.0-47.0); Hemoglobin 12.2 g/dL (12.0-16.0); Mean Corp Hgb Conc. 33.2 g/dL (33.0-37.0); Mean Corpuscular Hgb 29.7 pg (27.0-31.0); Mean Corpuscular Volume 89.5 fL (81.0-99.0); Mean Platelet Volume 10.1 fL (7.4-10.4); Nucleated Red Blood Cells % 0 %; Platelet Count 241 10^3/uL (130-400); Red Blood Cell Count 4.11 10^6/uL (4.20-5.40); Red Cell Dist. Width 17.3 % (11.5-14.5); White Blood Cell Count 9.1 10^3/uL (4.8-10.8)
[2024-01-08 08:43] LABS: ALT (SGPT) 29 U/L (0-35); AST (SGOT) 32 U/L (14-36); Albumin 3.9 g/dl (3.5-5.0); Alkaline Phosphatase 101 U/L (38-126); Blood Urea Nitrogen 19 mg/dl (7-17); Calcium 10.3 mg/dl (8.4-10.2); Carbon Dioxide 30 mmol/L (22-30); Chloride 105 mmol/L (98-107); Glucose 84 mg/dl (70-99); HDL Cholesterol 100 mg/dl; LDL Cholesterol, Calculated 93 mg/dl; Potassium 4.8 mmol/L (3.5-5.1); Sodium 144 mmol/L (135-145); Total Bilirubin 0.6 mg/dl (0.2-1.3); Total Cholesterol 210 mg/dl (50-199); Total Protein 6.8 g/dl (6.3-8.2); Triglyceride 87 mg/dl (10-149); Very Low Density Lipoprotein 17 mg/dl (0-30); eGFR > 60.00
[2024-01-08 09:09] LABS: TSH Reflex To Free T4 0.36 uIU/ml (0.47-4.68)
[2024-01-08 09:52] LABS: Free T4 0.69 ng/dl (0.78-2.19)
== END ==
LOC: REG 06:41
PROVIDERS: ATTENDING PHYSICIAN Internal Medicine
DX: I10 Essential (primary) hypertension (principal); R94.5 Abnormal results of liver function studies; G62.9 Polyneuropathy, unspecified; K21.9 Gastro-esophageal reflux disease without esophagitis; E78.00 Pure hypercholesterolemia, unspecified
CPT/HCPCS: 36415; 80053; 80061; 84439; 84443; 85025

== ENCOUNTER → 2024-01-22 09:38 | Outpatient (REF) | payer MEDICARE, OTHER, SELFPAY ==
[2024-01-22 11:20] LABS: FSH 51.3 mIU/ml; Free T4 0.97 ng/dl (0.78-2.19); Prolactin 20.1 ng/ml (3.0-18.6)
[2024-01-22 11:22] LABS: Free T3 2.89 pg/ml (2.77-5.27)
[2024-01-22 11:34] LABS: TSH 0.38 uIU/ml (0.47-4.68)
[2024-01-22 11:35] LABS: Estradiol 25.3 pg/ml
[2024-01-22 11:36] LABS: Cortisol, Random 1.2 ug/dl
[2024-01-23 15:50] LABS: TSH Receptor Antibody <1.10 IU/L (<=1.75)
[2024-01-23 15:53] LABS: Thyroglobulin Antibodies <0.9 IU/mL (0.0-4.0); Thyroid Peroxidase Ab (TPO) 0.6 IU/mL (0.0-9.0)
[2024-01-23 22:21] LABS: Thyroid Stim. Immunoglobulin <0.10 IU/L (<=0.54)
[2024-01-24 02:39] LABS: IGF-1 Z Score Calculation 0.9; Insulin-like Growth Factor I 138 ng/mL (22-220)
== END ==
LOC: REG 09:38
PROVIDERS: ATTENDING PHYSICIAN Internal Medicine Endocrinology, Diabetes & Metabolism; FAMILY PHYSICIAN Internal Medicine; REFERRING PHYSICIAN Psychiatry & Neurology Neurology
DX: R79.89 Other specified abnormal findings of blood chemistry (principal); E05.90 Thyrotoxicosis, unspecified without thyrotoxic crisis or storm
CPT/HCPCS: 36415; 82533; 82670; 83001; 83002; 83520; 84146; 84305; 84439; 84443; 84445; 84481; 86376; 86800

== ENCOUNTER → 2024-04-19 09:51 | Outpatient (REF) | payer MEDICARE, OTHER, SELFPAY | LOC: RAD 09:51 | PROVIDERS: ATTENDING PHYSICIAN Nurse Practitioner Adult Health | DX: S91.109A Unspecified open wound of unspecified toe(s) without damage to nail, initial encounter (principal); M79.672 Pain in left foot | CPT/HCPCS: 73630 ==

== ENCOUNTER → 2024-05-02 12:25 | Outpatient (REF) | payer MEDICARE, OTHER, SELFPAY | LOC: WOUND 12:25 | PROVIDERS: ATTENDING PHYSICIAN Surgery; FAMILY PHYSICIAN Internal Medicine | DX: L97.522 Non-pressure chronic ulcer of other part of left foot with fat layer exposed (principal); B35.3 Tinea pedis; M06.9 Rheumatoid arthritis, unspecified; Z79.52 Long term (current) use of systemic steroids; G61.81 Chronic inflammatory demyelinating polyneuritis | CPT/HCPCS: 99213 ==

== ENCOUNTER → 2024-05-23 11:12 | Outpatient (REF) | payer MEDICARE, OTHER, SELFPAY | LOC: WOUND 11:12 | PROVIDERS: ATTENDING PHYSICIAN Surgery; FAMILY PHYSICIAN Internal Medicine | DX: L97.522 Non-pressure chronic ulcer of other part of left foot with fat layer exposed (principal); B35.3 Tinea pedis; M06.9 Rheumatoid arthritis, unspecified; G61.81 Chronic inflammatory demyelinating polyneuritis; Z79.52 Long term (current) use of systemic steroids | CPT/HCPCS: 99212 ==

== ENCOUNTER 2024-10-14 18:07 | Observation (INO) | payer MEDICARE, OTHER, SELFPAY ==
[2024-10-14] VITALS (10 sets, daily range): BP systolic 111–143; BP diastolic 59–77; BMI 23.2; BMI 23.7
[2024-10-14 14:00] LABS: Glucose - Point of Care 100 mg/dl (70-99)
[2024-10-14 14:46] LABS: % Basophils 0.3 % (0-2); % Eosinophils 0.4 % (0-6); % Immature Granulocytes 0.5 % (0-0.5); % Lymphocytes 11.9 % (20.5-51.1); % Monocytes 9.4 % (1.7-9.3); % Neutrophils 77.5 % (42.2-75.2); Absolute Eosinophils 0.1 10^3/uL (0-0.7); Absolute Immature Granulocytes 0.1 10^3/uL (0-0.05); Absolute Lymphocytes 1.4 10^3/uL (1.2-3.4); Absolute Monocytes 1.1 10^3/uL (0.1-0.6); Hematocrit 37.6 % (37.0-47.0); Hemoglobin 12.6 g/dL (12.0-16.0); Mean Corp Hgb Conc. 33.5 g/dL (33.0-37.0); Mean Corpuscular Hgb 28.8 pg (27.0-31.0); Mean Platelet Volume 9.8 fL (7.4-10.4); Nucleated Red Blood Cells % 0 %; Platelet Count 245 10^3/uL (130-400); Red Blood Cell Count 4.37 10^6/uL (4.20-5.40); Red Cell Dist. Width 17.6 % (11.5-14.5); White Blood Cell Count 11.6 10^3/uL (4.8-10.8)
[2024-10-14 15:05] LABS: ALT (SGPT) 23 U/L (0-35); AST (SGOT) 28 U/L (14-36); Albumin 4.2 g/dl (3.5-5.0); Alkaline Phosphatase 75 U/L (38-126); Blood Urea Nitrogen 20 mg/dl (7-17); Calcium 9.6 mg/dl (8.4-10.2); Carbon Dioxide 24 mmol/L (22-30); Chloride 105 mmol/L (98-107); Estimated Creatinine Clearance 46 ml/min; Glucose 105 mg/dl (70-99); Potassium 4.4 mmol/L (3.5-5.1); Sodium 134 mmol/L (135-145); Total Bilirubin 1.2 mg/dl (0.2-1.3); Total Protein 7.3 g/dl (6.3-8.2); eGFR 58.75
[2024-10-14 15:26] LABS: Troponin I < 0.012 ng/ml
[2024-10-14 15:28] LABS: Creatine Phosphokinase 57 U/L (30-135)
--- NOTE | 2024-10-14 15:52 | ED.GENMED ---
History of Present Illness
General
Chief Complaint: Weakness
Source: patient
Exam Limitations: none
Time Seen by Provider: 10/14/24 14:49
History of Present Illness
History of Present Illness:
74-year-old female presents with confusion change in mental status and weakness. Initial notes that patient was confused earlier today and disoriented after coming back in the doctor's office. She was helping friends pack up boxes over the
weekend. Patient when examined denies any current discomfort. She does have trouble giving history as she forgets words at times.
Past History
Past History
ED Past Medical History: CAD, GERD, HTN, Hypercholesterolemia and Other (Rheumatoid arthritis. Chronic inflammatory demyelinating polyneuropathy)
ED Past Surgical History: Cardiac (stents), Orthopedic (Bilateral knee replacements) and Other (cardiac stent x 2. Knee replacement.)
Social History
Tobacco: Non-smoker
Alcohol: None
Drug: None
Personal:
Living: with family
Employment: Retired
Family History
Family History: Other (n/c)
Phy Exam
Physical Exam
Physical Exam:
General: Well-appearing female no acute respiratory distress
HEENT: Normocephalic atraumatic
Heart: Regular rate and rhythm
Lungs: Clear no wheeze
Neurologic exam: Alert oriented to person only. No facial asymmetry no drift on exam. Frequently has trouble finding words. Unable to identify the glove on my hand. There is no dysarthria.
Extremities: No cyanosis
Course
Orders/Labs/Results
Orders:
Orders
10/14/24 Breakfast
Sodium, 2 Gram
At Your Request: Full Participation
Does patient need a safe tray?: No
10/14/24 13:56
Electrocardiogram (*1) Urgent
Reason for Study: Fatigue / Weakness
Head wo Contrast CT [CT Head W/o Iv Contrast] Urgent
Comment:
Reason For Exam: headache
EKG- Treatment ONCE
10/14/24 14:39
Complete Blood Count/With Diff Urgent
Comprehensive Metabolic Panel Urgent
Creatine Phosphokinase Urgent
Comment: ADD ON
Troponin I Urgent
10/14/24 15:03
Add On- LAB Urgent
Tests Added?: cpk
10/14/24 15:33
Urinalysis Reflex To Culture Urgent
Date Specimen was Collected: 10/14/24
Time Specimen was Collected: 15:29
Urine Microscopic Reflex Cult Urgent
10/14/24 17:46
Admit/Transfer Patient As Directed
Co-Sign Provider:
Level of Care: Observation services
Assign to:: Telemetry
Physician / Group: Kiera
Diagnosis: Change in Mental Status
Reason for Telemetry: CVA/TIA
Date to Stop Telemetry: 10/17/24
Time to Stop Telemetry: 11:00
PRN Pain Medication Management As Directed
May give lesser potent ordered pain med per pt: Yes
preference::
Protocol:: Medication orders for pain may be administered in a
manner that supports deferring to patient preference
when the pt is:
- Requesting an ordered lesser potent pain medication.
Least to most potent pain medications are defined
as: acetaminophen < NSAID < tramadol < opioids
(morphine, oxycodone, hydromorphone).
- Requesting a lesser dose of the same medication IF
ORDERED.
- Requesting a less intrusive route of administration
if both routes are prescribed by the provider (PO <
IV).
10/14/24 17:50
Code Status As Directed
Resuscitation Status: Full Code
10/14/24 20:26
Acetaminophen [Tylenol] 650 mg PO Q4HPRN PRN
Ezetimibe [Zetia] 10 mg PO QPM
FOLic ACID [Folvite] 1 mg PO QPM
10/14/24 20:26
Activity As Directed
Activity Level: Out of Bed-Early Mobility
With Assistance
Sequential Compression Device [Pneumatic Compression Sleeves] As Directed
Type: Knee high
Vital Signs As Directed
Frequency: Per unit guidelines
Weight As Directed
Frequency: Daily
Ot Eval And Treat Routine
Pt Eval And Treat Routine
Activity Level: Out of Bed-Early Mobility
Speech Therapy Eval & Treat Routine
Treatment: Cognitive Evaluation (MoCA or BCAT)
DX Deep Vein Thrombosis Video Routine
10/15/24 06:18
Basic Metabolic Panel IN AM
Complete Blood Count/No Diff IN AM
Magnesium IN AM
10/15/24 08:00
Amlodipine [Norvasc] 5 mg PO DAILY
Aspirin Low Dose EC [Aspir Low (Enteric Coated)] 81 mg PO DAILY
Escitalopram Oxalate [Lexapro] 10 mg PO DAILY
Pantoprazole [Protonix] 40 mg PO DAILY
10/15/24 12:00
Metoprolol Xl [Toprol Xl] 12.5 mg PO DAILY@1200
Prednisone [Deltasone] 5 mg PO DAILY@1200
10/15/24 16:00
Cholecalciferol (Vitamin D3) [VITAMIN D3 (cholecalciferol)] 25 mcg PO DAILY@1600
Cyanocobalamin [Vitamin B-12] 1,000 mcg PO DAILY@1600
10/17/24 11:00
DC Protocol for Telemetry ONCE
10/19/24 08:00
Methotrexate Sodium [Methotrexate] 10 mg PO WEEKLY
Abnormal Lab Results
10/14/24 10/14/24 10/14/24
13:59 14:39 15:33
WBC 11.6 H 10^3/uL
(4.8-10.8)
RDW 17.6 H %
(11.5-14.5)
Abs Immat Gran (auto) 0.1 H 10^3/uL
(0-0.05)
Absolute Neuts (auto) 9.0 H 10^3/uL
(1.4-6.5)
Absolute Monos (auto) 1.1 H 10^3/uL
(0.1-0.6)
Neutrophils % 77.5 H %
(42.2-75.2)
Lymphocytes % 11.9 L %
(20.5-51.1)
Monocytes % 9.4 H %
(1.7-9.3)
Sodium 134 L mmol/L
(135-145)
BUN 20 H mg/dl
(7-17)
Glucose 105 H mg/dl
(70-99)
Urine Ketones 1+ A
(Negative)
Urine Bacteria (Reflex) Few A
(Negative)
Urine Albumin (Reflex) 1+ A
(Neg - Trace)
POC Glucose 100 H mg/dl
(70-99)
10/14/24 14:39
10/14/24 14:39
Vital Signs
Initial and Last Documented VS:
Initial Vital Signs
Temp Pulse Resp BP Pulse Ox
98.4 F 69 16 111/66 98
10/14/24 13:50 10/14/24 13:50 10/14/24 13:50 10/14/24 13:50 10/14/24 13:50
Last Documented Vital Signs
Temp Pulse Resp BP Pulse Ox
97.7 F 61 18 107/60 98
10/15/24 11:05 10/15/24 11:05 10/15/24 11:05 10/15/24 11:05 10/15/24 12:40
MDM/Problems Addressed
Differential Diagnosis Includes:
Episode of weakness and confusion. Consider TIA electrolyte abnormality versus worsening cognitive decline will check labs and CT of head
*Critical Care Note
Total Time (30-74mins, 75-104mins- exclusive of procedures): Not Applicable
Update Note
Update Note:
Spoke with patient's son over the phone as well as friend Dedra who is now in the room. Son does elaborate on the fact the patient has had some cognitive decline getting worse over time. The word finding is not new for her. Was was new for her was
an abrupt change in disorientation and weakness today around 1:50 PM. Per the friend Dedra who brought her here she has improved some but still not back to baseline. Of note, patient had a COVID-vaccine 3 days ago. She was also helping a friend
pack of boxes over the weekend. Consider electrolyte abnormality dehydration response to COVID-vaccine versus TIA. Will admit to hospital for further workup
ED Attending Note
-
Portions of this chart may have been created with voice recognition software.� Occasional wrong word or��sound alike� substitutions may have occurred due to the inherent limitations of voice recognition software.
Discharge Plan
Departure
Patient Disposition: Admit
Date of Disposition: 10/14/24
Time of Disposition: 15:53
Presentation/result/management discussed w/ accepting MD/DO: Hospitalist
Discharge Problem:
Confusion
Interventions
Interventions:
*Risk Screen - Suicide Last Done: 10/14/24 13:55
*General Assessment Last Done: 10/14/24 14:41
*Neglect/Abuse Screening Last Done: 10/14/24 13:55
*ED- Fall Risk Assessment Last Done: 10/14/24 14:41
*ED COVID-19 Vaccine History Last Done: 10/14/24 20:47
*Nursing Disposition Last Done: 10/14/24 20:26
ED- Cardiac Assessment Last Done: 10/14/24 14:41
ED- Neurological Assessment Last Done: 10/14/24 14:41
ED- Pulmonary Assessment Last Done: 10/14/24 14:41
Discharge Date and Time
Discharge Date/Time: 10/14/24 20:26
[2024-10-14 15:57] LABS: Urine Albumin 1+ (Neg - Trace); Urine Bilirubin Negative (Negative); Urine Character Clear (Clear); Urine Color Yellow; Urine Glucose Negative (Negative); Urine Ketone 1+ (Negative); Urine Leukocyte Negative (Negative); Urine Nitrite Negative (Negative); Urine Occult Blood Negative (Negative); Urine Urobilinogen Negative (Neg - 1+)
[2024-10-14 16:43] LABS: Urine Mucus Many; Urine Squamous Cell 0-2 /LPF (Few)
[2024-10-14 16:44] LABS: Urine Bacteria Few (Negative); Urine Red Blood Cell 0-2 /HPF (0-2); Urine White Cell 0-2 /HPF (0-5)
--- NOTE | 2024-10-14 17:11 | HPS.HSE ---
Family Physician
-
Family Physician: Nereyda Ferrera
Chief Complaint
-
Confusion
History of Present Illness
Patient is a 74 y/o male past medical history history of CIDP, RA on immunosuppression, CAD, hypertension and anxiety/depression who presents with confusion. It is difficult to obtain accurate history from the patient. Patient reports she was
helping her friend move boxes over the weekend. Her neighbor took her to the PCP today and afterward she was feeling weak. Patient admits that she isn't her usual self. During our conversation her story is very tangental and difficult to follow.
Medical History
Past Medical History
Past Medical History: Reports Other
Additional Past Medical History:
Coronary Artery Disease s/p Stent
Essential Hypertension
CIDP
Rheumatoid Arthritis
Chronic Immunosuppression
GERD
Anxiety / Depression
Past Surgical History: Reports Other
Additional Past Surgical History:
PTCA with Stent x 2
Bilateral TKA
RLE wound Debridement (04/2023)
Social History
Tobacco: Non-smoker
Alcohol: None
Drug: None
Family History
Family History: Not pertinent
Allergies / Home Medications
Allergies reflects when Allergies were last updated in [facility].
Home Medications with original date entered in [facility]
Allergy/Medication List:
Allergies
Allergy/AdvReac Type Severity Reaction Status Date / Time
STEPHEN Inhibitors (Stephen Allergy Unknown Verified 06/14/23 13:48
Inhibitors)
iodine (Iodine) Allergy Hives Verified 06/14/23 13:48
potassium iodide (Potassium Allergy Unknown Verified 06/14/23 13:48
Iodide)
povidone-iodine Allergy Unknown Verified 06/14/23 13:48
Home Medications
pantoprazole 40 mg tablet,delayed release 40 mg PO DAILY Gastrointestinal issue 12/02/18
aspirin 81 mg tablet,delayed release 81 mg PO DAILY Blood clot prevention/tx 08/10/20
biotin 1 mg capsule 1 mg PO DAILY@1600 Supplement 08/10/20
cholecalciferol (vitamin D3) 25 mcg (1,000 unit) tablet 1,000 units PO DAILY@1600 Supplement 08/10/20
cyanocobalamin (vitamin B-12) 1,000 mcg tablet 1,000 mcg PO DAILY@1600 Supplement 08/10/20
escitalopram oxalate 5 mg tablet 10 mg PO DAILY Anxiety 08/10/20
folic acid 1 mg tablet 1 mg PO QPM Supplement 08/10/20
metoprolol succinate 25 mg tablet,extended release 24 hr 12.5 mg PO DAILY@1200 Cad/PAC's 08/10/20
prednisone 5 mg tablet 8 mg PO DAILY@1200 chronic inflammatory demyelinating polyneuropathy 08/10/20
methotrexate sodium 2.5 mg tablet 10 mg PO SA rheumatoid arthritis 10/23/20
ezetimibe 10 mg tablet 10 mg PO QPM High Cholesterol 04/19/23
amlodipine 5 mg tablet 5 mg PO DAILY Blood pressure #90 tabs 04/21/23
coenzyme Q10 100 mg capsule (Co Q-10) 100 mg PO DAILY@1600 Supplement 06/14/23
Review of Systems
-
A 12 point ROS was completed and negative except as noted: Yes
Constitutional: Denies Fever or Chills
Respiratory: Denies Cough or Trouble Breathing
Cardiac: Denies Chest Pain or Palpitations
Abdomen/GI: Denies Abdominal Pain, Nausea, Vomiting or Diarrhea
Neurological: Reports See HPI
Physical Exam
Vital Signs
Vital Signs
Temp Pulse Resp BP Pulse Ox
98.5 F 61 21 143/63 96
10/14/24 14:41 10/14/24 16:00 10/14/24 16:00 10/14/24 16:00 10/14/24 16:00
Physical Exam
General: Comfortable and Conversant
HEENT: Anicteric and Moist mucous membranes
Respiratory: Clear and Non Labored Respirations
Cardiac: S1/S2 and Regular Rhythm
GI: Soft and Non Tender
Musculoskeletal: No Clubbing, No Cyanosis and Other (Non-pitting edema bilaterally )
Skin: Warm, Dry and Other (Chronic venous stasis changes lower extremities)
Neuro: Awake, Alert and Nonfocal/grossly intact; No Oriented
Psych: Confused
Laboratory Results
-
10/14/24 14:39
10/14/24 14:39
Laboratory Results
Total Bilirubin 1.2 mg/dl (0.2-1.3) 10/14/24 14:39
AST 28 U/L (14-36) 10/14/24 14:39
ALT 23 U/L (0-35) 10/14/24 14:39
Alkaline Phosphatase 75 U/L (38-126) 10/14/24 14:39
Troponin I < 0.012 ng/ml 10/14/24 14:39
Data Reviewed
-
CT Scan: Report Reviewed by me
Lab Data: Labs Reviewed by me
Impression/Plan
-
Change in Mental Status, suspect progression of underlying cognitive impairment
-Check Brain MRI to evaluate for possible stroke but low suspicion
-Consult Speech Therapy for cognitive evaluation
Coronary Artery Disease s/p Stent
-Continue aspirin
Essential Hypertension
-Continue amlodipine and metoprolol
Hyperlipidemia
-Continue Zetia
Chronic Inflammatory Demyelinating Polyneuropathy
Rheumatoid Arthritis / Chronic Immunosuppression
-Continue prednisone
-Patient is maintained on methotrexate as outpatient
GERD
-Continue Protonix
Anxiety / Depression
-Continue Lexapro
DVT proph: SCDs
Code Status: Full Code
--- NOTE | 2024-10-14 19:27 | W.PN.UPDATE ---
Update Note
Progress Note Update
This is an addendum to H&P written by Jacqueline Smith on 10/14/2024.� Patient seen examined dependently with PA.
74-year-old female past medical history of mild cognitive impairment CAD status post stents, GERD, hypertension, hypercholesteremia, rheumatoid arthritis, CIDP, presenting with change in mental status and weakness over the past few days.� Reportedly
got COVID-vaccine few days ago.
No focal symptoms of infection.
She was admitted in June for similar symptoms of confusion.� She had MRI brain which showed possible amyloid angiopathy.� Seen by neurology recommended outpatient follow-up.
CT head shows no acute abnormality.
Labs show leukocytosis.
Unclear etiology of symptoms.� Seems like it could be related to underlying dementia.� Does not seem that recent COVID-vaccine is the cause.
Check MRI brain.�
Speech therapy for cognitive evaluation.�
--- NOTE | 2024-10-14 20:45 | PTCARENOTE ---
Received patient from ED via stretcher. Patient ambulated from stretcher to bed x2 assist. AAOx2, patient confused with time/date. Oriented patient to room and placed call vásquez within reach.
[2024-10-14] MEDS: ZETIA 10 MG PO (21:26)
[2024-10-14] MEDS: FOLVITE 1 MG PO (21:27)
[2024-10-15 03:38] VITALS: BP 111/57
[2024-10-15 06:00] VITALS: BMI 23.9
[2024-10-15 07:25] VITALS: BP 114/64
[2024-10-15 07:49] LABS: Hematocrit 34.9 % (37.0-47.0); Hemoglobin 11.4 g/dL (12.0-16.0); Mean Corp Hgb Conc. 32.7 g/dL (33.0-37.0); Mean Corpuscular Hgb 28.6 pg (27.0-31.0); Mean Corpuscular Volume 87.5 fL (81.0-99.0); Mean Platelet Volume 10.4 fL (7.4-10.4); Platelet Count 227 10^3/uL (130-400); Red Blood Cell Count 3.99 10^6/uL (4.20-5.40); Red Cell Dist. Width 17.9 % (11.5-14.5); White Blood Cell Count 8.7 10^3/uL (4.8-10.8)
[2024-10-15 08:53] LABS: Blood Urea Nitrogen 15 mg/dl (7-17); Carbon Dioxide 24 mmol/L (22-30); Chloride 107 mmol/L (98-107); Estimated Creatinine Clearance 45 ml/min; Glucose 77 mg/dl (70-99); Potassium 4.4 mmol/L (3.5-5.1); Sodium 135 mmol/L (135-145); eGFR > 60.00
[2024-10-15] MEDS: ASPIR LOW (ENTERIC COATED) 81 MG PO (09:30)
[2024-10-15] MEDS: PROTONIX 40 MG PO (09:30)
[2024-10-15] MEDS: LEXAPRO 10 MG PO (09:30)
[2024-10-15 11:05] VITALS: BP 107/60
--- NOTE | 2024-10-15 11:29 | PTOTSP ---
Speech Therapy Assessment
Patient presents with significant cognitive communication impairments including: obvious word finding difficulty with frequent ineffective cirumlocution, reduced memory, tangential thinking/verbal expression, reduced auditory comprehension limited
to 1-2 units, and was internally and externally distracted with need for redirection.
Patient appears to have some awareness of difficulty but attributes deficits to life long problem that has worsened with age. Patient was unable to effectively explain what this prior problem was but perseverated on this fact throughout session -
likely as means to explain her current deficits.
Recommend:
1. Comprehensive assessment of language and cognitive skills. Patient was agreeable and thought services would be helpful. Provided patient with information on outpatient services.
2. Given documentation of MCI, patient may also benefit from neuropsychological testing after discharge if not already completed.
[2024-10-15 12:20] VITALS: BP 107/63
[2024-10-15] MEDS: DELTASONE 5 MG PO (12:51)
[2024-10-15] MEDS: TOPROL XL 12.5 MG PO (12:51)
[2024-10-15] MEDS: DELTASONE 3 MG PO (12:51)
--- NOTE | 2024-10-15 13:33 | CM ---
Addendum entered by Treva Mcdermott RN 10/15/24 15:09:
PT OT zoe reviewed with pt . RN and CM spoke with pt about recommendations for SNF.
Pt declined SNF.Offered VN she requested [facility] . Nereyda Hinojosa liaison [facility] TT.
Friend will drive her home.
PLAN Home with [facility]
Original Note:
Alert awake oriented who lives alone in an apartment [address] with zero steps to enter .She does not drive . She is independent in all AdLs.
KABA explained signed on chart .Offered VN she declined.Friend will drive her home.
VN hx No SNF HX.
Pharmacy [facility]
PCP DR Ferrera
PLAN Home no needs
[2024-10-15 13:46] VITALS: BP 107/63; PULSE 63; O2SAT 99
[2024-10-15 13:54] LABS: Hepatitis C Antibody Negative (Negative)
--- NOTE | 2024-10-15 13:58 | W.DCSUMMARY ---
Addendum entered and electronically signed by Robert Carter DO 10/15/24 14:15:
Patient changed her mind and agreed to visiting nurse for home health.
Original Note:
Discharge Summary
Discharge Data
Date of Admission: 10/14/24
Date of Discharge: 10/15/24
Total time spent discharging patient (in min): 40
-
Pending Results: No
Hospital Course
Ms. Mathews is a 74-year-old female with a medical history of chronic inflammatory demyelinating polyneuropathy, progressive cognitive impairment (suspect due to cerebral amyloid angiopathy), rheumatoid arthritis (on chronic immunosuppression),
hypertension, and CAD who presented following an episode of weakness and confusion. A few days before her presentation she had been helping a friend move boxes. She woke up the day of presentation feeling weak and confused. Her friend brought her
to the PCP and eventually patient was brought to the ED for further evaluation. She was admitted for her acute mental status change and weakness.
She showed no signs of acute infection. Head CT in the ED showed no acute intracranial abnormality. Brain MRI showed innumerable intraparenchymal microhemorrhages consistent with amyloid angiopathy, and severe white matter leukoaraiosis. The MRI
brain findings were chronic appearing and similar to previous MRI from 06/15/2023.
Her mental status returned to apparent baseline with no specific intervention. She likely has progressive neurodegenerative disease, which we discussed. She was admitted here in June 2023 with similar presentation, evaluated by neurology at
that time, her clopidogrel was stopped, and she was told to continue follow-up with a neurologist in the outpatient setting. Her blood pressure has remained well-controlled throughout this hospitalization, and so doubt her cerebral microhemorrhages
are a result of uncontrolled hypertension.
She will be discharged with no changes to her her home medications. We discussed the need for ongoing follow-up with her neurologist and primary care physician. At time of hospital discharge she was medically stable. She qualified for skilled
nursing facility for PT/OT, however patient declined, also declined visiting nurse for home health.
General: No Apparent Distress, Comfortable and Conversant
HEENT: NormoCephalic, Moist mucous membranes, Atraumatic
Respiratory: Clear and Non Labored Respirations
Cardiac: S1/S2 and Regular Rhythm; No Rub or Gallop
GI: Soft, Non Tender, Non Distended and Normal Bowel Sounds
Musculoskeletal: No Edema, no deformity
: NO Townsend
Neuro: Awake, Alert, baseline memory issues
Psych: Calm and Intact Judgment/Insight
Discharge Plan
-
Patient Disposition: Assisted Living
Discharge Diagnosis/Procedures: Acute metabolic encephalopathy
Diet: Regular
Activity: As tolerated
Driving Restrictions: No driving
Activity Restrictions/Additional Instructions:
Ms. Mathews is a 74-year-old female with a medical history of chronic inflammatory demyelinating polyneuropathy, progressive cognitive impairment (suspect due to cerebral amyloid angiopathy), rheumatoid arthritis (on chronic immunosuppression),
hypertension, and CAD who presented following an episode of weakness and confusion. A few days before her presentation she had been helping a friend move boxes. She woke up the day of presentation feeling weak and confused. Her friend brought her
to the PCP and eventually patient was brought to the ED for further evaluation. She was admitted for her acute mental status change and weakness.
She showed no signs of acute infection. Head CT in the ED showed no acute intracranial abnormality. Brain MRI showed innumerable intraparenchymal microhemorrhages consistent with amyloid angiopathy, and severe white matter leukoaraiosis. The MRI
brain findings were chronic appearing and similar to previous MRI from 06/15/2023.
Her mental status returned to apparent baseline with no specific intervention. She likely has progressive neurodegenerative disease, which we discussed. She was admitted here in June 2023 with similar presentation, evaluated by neurology at
that time, her clopidogrel was stopped, and she was told to continue follow-up with a neurologist in the outpatient setting. Her blood pressure has remained well-controlled throughout this hospitalization, and so doubt her cerebral microhemorrhages
are a result of uncontrolled hypertension.
She will be discharged with no changes to her her home medications. We discussed the need for ongoing follow-up with her neurologist and primary care physician. At time of hospital discharge she was medically stable. She qualified for skilled
nursing facility for PT/OT, however patient declined, also declined visiting nurse for home health.
Referrals:
Nereyda Ferrera MD [Family Provider, Internal Medicine]
Prescriptions:
Continued
pantoprazole 40 MG tablet,delayed release (DR/EC)
40 mg PO DAILY
prednisone 5 MG tablet
8 mg PO DAILY@1200
Rx Instructions:
taken w/ 3mg = 8mg
cyanocobalamin (vitamin B-12) 1,000 MCG tablet
1,000 mcg PO DAILY@1600
aspirin 81 MG tablet,delayed release (DR/EC)
81 mg PO DAILY
folic acid 1 MG tablet
1 mg PO QPM
metoprolol succinate 12.5 MG tablet extended release 24 hr
12.5 mg PO DAILY@1200
escitalopram oxalate 5 MG tablet
10 mg PO DAILY
cholecalciferol (vitamin D3) 1,000 UNITS tablet
1,000 units PO DAILY@1600
biotin 1 MG capsule
1 mg PO DAILY@1600
methotrexate sodium 2.5 MG tablet
10 mg PO SA
ezetimibe 10 mg tablet
10 mg PO QPM
amlodipine 5 MG tablet
5 mg PO DAILY Qty: 90 5RF
coenzyme Q10 [Co Q-10] 100 mg Capsule
100 mg PO DAILY@1600
Discharge Orders:
Discharge Patient (As Directed); Ordered 10/15/24
Ordered By: Robert Carter
Discharge Date and Time
Print Language: MONGOLIAN
--- NOTE | 2024-10-15 15:08 | VNURNOTE ---
Home Health Liaison met with patient at bedside to discuss [facility] nurse/therapy, visits, schedule and homebound status. Initially pt hesitant for VN due to 'too many people going in and out of my house.' Explained that visits would be 30mins-1 hr and
she can discuss w/admitting nurse about frequency (possibly once/week). Patient was agreeable. Pt verbalized understanding. She is aware that [facility] will contact them for start of care in 1-2 days after discharge from .
[facility] referral completed in [facility].
[2024-10-15 15:14] VITALS: BP 94/60
== END 2024-10-15 15:36 | disposition home health service (06) ==
LOC: 4 EAST ACU 18:07
PROVIDERS: Emergency Medicine; Physician Assistant; Physician Assistant Medical; ADMITTING PHYSICIAN Hospitalist; ATTENDING PHYSICIAN Internal Medicine; EMERGENCY PHYSICIAN Emergency Medicine; FAMILY PHYSICIAN Internal Medicine
DX: G93.41 Metabolic encephalopathy (principal); R53.1 Weakness; E78.00 Pure hypercholesterolemia, unspecified; I10 Essential (primary) hypertension; M06.9 Rheumatoid arthritis, unspecified; I25.10 Atherosclerotic heart disease of native coronary artery without angina pectoris; K21.9 Gastro-esophageal reflux disease without esophagitis; G61.81 Chronic inflammatory demyelinating polyneuritis; R51.9 Headache, unspecified; R00.1 Bradycardia, unspecified; R53.83 Other fatigue; I67.81 Acute cerebrovascular insufficiency; M50.01 Cervical disc disorder with myelopathy, high cervical region; F41.9 Anxiety disorder, unspecified; F32.A Depression, unspecified; D84.821 Immunodeficiency due to drugs; Z88.8 Allergy status to other drugs, medicaments and biological substances; Z91.041 Radiographic dye allergy status; Z79.52 Long term (current) use of systemic steroids; Z79.82 Long term (current) use of aspirin; Z79.631 Long term (current) use of antimetabolite agent; Z95.5 Presence of coronary angioplasty implant and graft; Z96.653 Presence of artificial knee joint, bilateral
CPT/HCPCS: 70450; 70551; 80048; 80053; 81003; 81015; 82550; 82962; 83735; 84484; 85025; 85027; 86803; 92523; 93005; 97163; 97167; 99285; G0378

== ENCOUNTER → 2024-12-10 10:57 | Outpatient (REF) | payer MEDICARE, OTHER, SELFPAY | LOC: PAVMRI 10:57 | PROVIDERS: ATTENDING PHYSICIAN Internal Medicine | DX: R41.0 Disorientation, unspecified (principal); R42 Dizziness and giddiness | CPT/HCPCS: 70551 ==

== ENCOUNTER → 2025-01-03 09:56 | Outpatient (REF) | payer MEDICARE, OTHER, SELFPAY ==
[2025-01-03 11:02] LABS: Hematocrit 37.6 % (37.0-47.0); Hemoglobin 12.1 g/dL (12.0-16.0); Mean Corp Hgb Conc. 32.2 g/dL (33.0-37.0); Mean Corpuscular Volume 89.7 fL (81.0-99.0); Nucleated Red Blood Cells % 0 %; Platelet Count 246 10^3/uL (130-400); Red Cell Dist. Width 17.9 % (11.5-14.5)
[2025-01-03 11:35] LABS: ALT (SGPT) 26 U/L (0-35); AST (SGOT) 28 U/L (14-36); Albumin 4.1 g/dl (3.5-5.0); Alkaline Phosphatase 61 U/L (38-126); Blood Urea Nitrogen 17 mg/dl (7-17); Calcium 10.2 mg/dl (8.4-10.2); Carbon Dioxide 28 mmol/L (22-30); Chloride 107 mmol/L (98-107); Glucose 76 mg/dl (70-99); HDL Cholesterol 85 mg/dl; LDL Cholesterol, Calculated 88 mg/dl; Potassium 4.8 mmol/L (3.5-5.1); Sodium 139 mmol/L (135-145); Total Protein 6.8 g/dl (6.3-8.2); Very Low Density Lipoprotein 19 mg/dl (0-30); eGFR 52.40
== END ==
LOC: REG 09:56
PROVIDERS: ATTENDING PHYSICIAN Internal Medicine
DX: E78.2 Mixed hyperlipidemia (principal); I10 Essential (primary) hypertension; R53.83 Other fatigue
CPT/HCPCS: 36415; 80053; 80061; 84443; 85025

== ENCOUNTER 2025-01-11 08:59 | Emergency (ER) | payer MEDICARE, OTHER, SELFPAY ==
[2025-01-11 09:03] VITALS: BP 133/78
[2025-01-11 10:04] VITALS: BP 151/70
[2025-01-11 10:12] VITALS: BMI 21.6
[2025-01-11 10:22] LABS: Hematocrit 38.2 % (37.0-47.0); Hemoglobin 12.6 g/dL (12.0-16.0); Mean Corp Hgb Conc. 33.0 g/dL (33.0-37.0); Mean Corpuscular Volume 88.6 fL (81.0-99.0); Nucleated Red Blood Cells % 0 %; Platelet Count 242 10^3/uL (130-400); Red Cell Dist. Width 17.8 % (11.5-14.5)
--- NOTE | 2025-01-11 10:25 | EDRN ---
Dr. Giordano in to see pt.
--- NOTE | 2025-01-11 10:28 | ED.GENMED ---
History of Present Illness
General
Chief Complaint: Abdominal Pain
Source: patient
Exam Limitations: none
Time Seen by Provider: 01/11/25 10:05
Nursing documentation reviewed up to this point in time: agreed with
History of Present Illness
History of Present Illness:
Patient presents to ED secondary to ongoing lower abdominal pain associated with loss of appetite and 10 pound weight loss over the past 1 month. Patient has been evaluated by her primary care physician as well as GI physician since onset of
symptoms, without improvement symptoms. Denies fever or chills. Denies vomiting but reports diarrhea. Denies recent travel. Denies recent travel. Denies sick contact. Denies recent change in medications.
Past History
Past History
ED Past Medical History: CAD, GERD, HTN, Hypercholesterolemia and Other (Rheumatoid arthritis. Chronic inflammatory demyelinating polyneuropathy)
ED Past Surgical History: Cardiac (stents), Orthopedic (Bilateral knee replacements) and Other (cardiac stent x 2. Knee replacement.)
Social History
Tobacco: Non-smoker
Alcohol: None
Drug: None
Personal:
Living: with family
Employment: Retired
Family History
Family History: Other (n/c)
Review of Systems
Review of Systems
Allergies reviewed?: Yes
All Other Systems: ROS reviewed and negative except as documented in HPI and ROS
Constitutional: Reports no symptoms
ABD/GI: Reports abdominal pain and diarrhea
Musculoskeletal: Reports no symptoms
Skin: Reports no symptoms
Neurological: Reports no symptoms
Phy Exam
Physical Exam
Physical Exam:
Physical Exam
General: no apparent distress, not acutely ill. afebrile
Head: nc/at. eomi
Neck: supple. normal range of motion.
Heart: s1/s2 regular rate and rhythm.
Lungs: no acute respiratory distress. clear bilaterally
Abdomen: normal bowel sounds. not tender. no distention
Neuro: alert and oriented x 3. no focal neurological deficits
Skin: no rash
Psychiatric: well kept. interactive and cooperative
Extremities: no edema. no calf tenderness.
Course
Orders/Labs/Results
Orders:
Orders
01/11/25 10:09
Complete Blood Count/With Diff Urgent
Comprehensive Metabolic Panel Urgent
Free T4 Urgent
Lipase Urgent
Magnesium Urgent
Comment: ADD ON
Phosphorus Urgent
Comment: ADD ON
TSH Reflex To Free T4 Urgent
Comment: ADD ON
01/11/25 10:18
Add On- LAB Urgent
Tests Added?: magnesium, phosphorus, TSH to reflex free T4
0.9% Sodium Chloride 500 ml [Nss] 500 ml IV BOLUS
Iohexol [Omnipaque] See Protocol PO NOW STA
01/11/25 13:19
CT Abd/pel (oral only)-DH Only Urgent
Comment:
Reason For Exam: low abd pain w weight loss
Iohexol [Omnipaque] See Protocol PO NOW STA
01/11/25 14:19
Amoxicillin 875 mg/Clav 125 mg [Augmentin 875 mg/125 mg] 1 tablet .ROUTE .STK-MED ONE
Amoxicillin 875 mg/Clav 125 mg [Augmentin 875 mg/125 mg] 1 tablet PO NOW STA
Abnormal Lab Results
01/11/25
10:09
WBC 13.1 H 10^3/uL
(4.8-10.8)
RDW 17.8 H %
(11.5-14.5)
Absolute Neuts (auto) 9.2 H 10^3/uL
(1.4-6.5)
Absolute Monos (auto) 1.1 H 10^3/uL
(0.1-0.6)
Lymphocytes % 19.3 L %
(20.5-51.1)
Calcium 10.5 H mg/dl
(8.4-10.2)
TSH (Reflex) 0.15 L uIU/ml
(0.47-4.68)
01/11/25 10:09
01/11/25 10:09
Vital Signs
Initial and Last Documented VS:
Initial Vital Signs
Temp Pulse Resp BP Pulse Ox
97.6 F 60 18 133/78 100
01/11/25 09:03 01/11/25 09:03 01/11/25 09:03 01/11/25 09:03 01/11/25 09:03
Last Documented Vital Signs
Temp Pulse Resp BP Pulse Ox
97.6 F 53 16 150/73 96
01/11/25 09:03 01/11/25 14:00 01/11/25 14:00 01/11/25 14:00 01/11/25 14:00
MDM/Problems Addressed
MDM/Problems Addressed:
CT abdomen/pelvis report reviewed and discussed with patient. History and exam consistent with likely acute diverticulitis. Patient otherwise remains afebrile, hemodynamically stable, and nontoxic-appearing. Patient will be treated with
antibiotics, with recommendation to follow-up with PCP for reevaluation, or return to ED with worsening symptoms. Patient expresses understanding at time of discharge, to the care of her friend.
*Pulse Oximetry
SaO2: 100
Oxygen Mode of Delivery: Room air
Patient hypoxic: no
*Critical Care Note
Total Time (30-74mins, 75-104mins- exclusive of procedures): Not Applicable
ED Attending Note
-
Portions of this chart may have been created with voice recognition software.� Occasional wrong word or��sound alike� substitutions may have occurred due to the inherent limitations of voice recognition software.
Discharge Plan
Departure
Patient Disposition: Home (Routine Discharge)
Date of Disposition: 01/11/25
Time of Disposition: 14:21
Patient with high blood pressure during this ER visit?: Yes
Discharge Problem:
Diverticulitis
Instructions: Diverticulitis (DC)
Prescriptions:
New
amoxicillin-pot clavulanate 875-125 mg tablet
1 tab PO Q12H Qty: 19 0RF
No Action
pantoprazole 40 MG tablet,delayed release (DR/EC)
40 mg PO DAILY
prednisone 5 MG tablet
8 mg PO DAILY@1200
Rx Instructions:
taken w/ 3mg = 8mg
cyanocobalamin (vitamin B-12) 1,000 MCG tablet
1,000 mcg PO DAILY@1600
aspirin 81 MG tablet,delayed release (DR/EC)
81 mg PO DAILY
folic acid 1 MG tablet
1 mg PO QPM
metoprolol succinate 12.5 MG tablet extended release 24 hr
12.5 mg PO DAILY@1200
escitalopram oxalate 5 MG tablet
10 mg PO DAILY
cholecalciferol (vitamin D3) 1,000 UNITS tablet
1,000 units PO DAILY@1600
biotin 1 MG capsule
1 mg PO DAILY@1600
methotrexate sodium 2.5 MG tablet
10 mg PO SA
ezetimibe 10 mg tablet
10 mg PO QPM
amlodipine 5 MG tablet
5 mg PO DAILY Qty: 90 5RF
coenzyme Q10 [Co Q-10] 100 mg Capsule
100 mg PO DAILY@1600
Referrals:
UNKNOWN - PT DOES,NOT KNOW [Family Provider]
Activity Restrictions/Additional Instructions:
As discussed, please follow-up with your primary care physician with any further concerns. Please consider return to ED with worsening symptoms, i.e. fever/worsening pain/vomiting. Your prescription has been sent electronically to [facility]
in [place].
Interventions
Interventions:
*Risk Screen - Suicide Last Done: 01/11/25 09:03
*General Assessment Last Done: 01/11/25 10:13
*Neglect/Abuse Screening Last Done: 01/11/25 09:03
*ED- Fall Risk Assessment Last Done: 01/11/25 10:13
*ED COVID-19 Vaccine History Last Done: 01/11/25 10:13
*Nursing Disposition Last Done: 01/11/25 14:32
QE-Smewoq-Jfdbhhtobi Assessment Last Done: 01/11/25 10:13
Discharge Date and Time
Discharge Date/Time: 01/11/25 14:33
Print Language: VENEZUELAN
[2025-01-11] MEDS: NSS 500 IV (10:33)
[2025-01-11] MEDS: OMNIPAQUE 50 ML PO (10:34)
[2025-01-11 10:44] LABS: ALT (SGPT) 27 U/L (0-35); AST (SGOT) 26 U/L (14-36); Albumin 4.2 g/dl (3.5-5.0); Alkaline Phosphatase 70 U/L (38-126); Blood Urea Nitrogen 15 mg/dl (7-17); Calcium 10.5 mg/dl (8.4-10.2); Carbon Dioxide 27 mmol/L (22-30); Chloride 105 mmol/L (98-107); Estimated Creatinine Clearance 46 ml/min; Glucose 84 mg/dl (70-99); Lipase 127 U/L (23-300); Magnesium 1.9 mg/dl (1.6-2.3); Potassium 3.9 mmol/L (3.5-5.1); Sodium 136 mmol/L (135-145); Total Protein 7.2 g/dl (6.3-8.2); eGFR 58.75
[2025-01-11 11:00] VITALS: BP 104/91
[2025-01-11 12:15] VITALS: BP 116/80
[2025-01-11 13:00] VITALS: BP 156/78
[2025-01-11 14:00] VITALS: BP 150/73
--- NOTE | 2025-01-11 14:10 | EDRN ---
Dr. Giordano in to see pt at this time. Pt now in [facility] changing awaiting discharge papers and augmentin.
[2025-01-11] MEDS: AUGMENTIN 875 MG/125 MG 1 TABLET PO (14:21)
== END 2025-01-11 14:33 | disposition home or self-care (01) ==
LOC: EMR 08:59
PROVIDERS: EMERGENCY PHYSICIAN Emergency Medicine
DX: K57.32 Diverticulitis of large intestine without perforation or abscess without bleeding (principal); I25.10 Atherosclerotic heart disease of native coronary artery without angina pectoris; I10 Essential (primary) hypertension; E78.00 Pure hypercholesterolemia, unspecified; K21.9 Gastro-esophageal reflux disease without esophagitis; M06.9 Rheumatoid arthritis, unspecified; G61.81 Chronic inflammatory demyelinating polyneuritis; Z79.82 Long term (current) use of aspirin; Z95.5 Presence of coronary angioplasty implant and graft; Z96.653 Presence of artificial knee joint, bilateral
CPT/HCPCS: 99284; 96360; 96361; 74176; 80053; 83690; 83735; 84100; 84439; 84443; 85025

== ENCOUNTER → 2025-02-19 11:10 | Outpatient (REF) | payer MEDICARE, OTHER, SELFPAY | LOC: RAD 11:10 | PROVIDERS: ATTENDING PHYSICIAN Internal Medicine | DX: Z13.820 Encounter for screening for osteoporosis (principal); Z78.0 Asymptomatic menopausal state | CPT/HCPCS: 77080 ==

== ENCOUNTER → 2025-04-18 08:43 | Outpatient (REF) | payer MEDICARE, OTHER, SELFPAY ==
[2025-04-18 09:51] LABS: Hematocrit 35.4 % (37.0-47.0); Hemoglobin 11.3 g/dL (12.0-16.0); Mean Corp Hgb Conc. 31.9 g/dL (33.0-37.0); Mean Corpuscular Volume 97.0 fL (81.0-99.0); Nucleated Red Blood Cells % 0 %; Platelet Count 288 10^3/uL (130-400); Red Cell Dist. Width 17.6 % (11.5-14.5)
[2025-04-18 10:14] LABS: ALT (SGPT) 46 U/L (0-35); AST (SGOT) 37 U/L (14-36); Albumin 3.9 g/dl (3.5-5.0); Alkaline Phosphatase 127 U/L (38-126); Blood Urea Nitrogen 23 mg/dl (7-17); Calcium 10.4 mg/dl (8.4-10.2); Carbon Dioxide 31 mmol/L (22-30); Chloride 102 mmol/L (98-107); Glucose 80 mg/dl (70-99); HDL Cholesterol 86 mg/dl; LDL Cholesterol, Calculated 63 mg/dl; Potassium 4.0 mmol/L (3.5-5.1); Sodium 134 mmol/L (135-145); Total Protein 6.7 g/dl (6.3-8.2); Very Low Density Lipoprotein 16 mg/dl (0-30); eGFR 58.39
== END ==
LOC: REG 08:43
PROVIDERS: ATTENDING PHYSICIAN Internal Medicine
DX: I10 Essential (primary) hypertension (principal); E78.5 Hyperlipidemia, unspecified; R41.89 Other symptoms and signs involving cognitive functions and awareness; E78.2 Mixed hyperlipidemia
CPT/HCPCS: 36415; 80053; 80061; 84443; 85025

== ENCOUNTER → 2025-05-01 15:24 | Outpatient (REF) | payer MEDICARE, OTHER, SELFPAY | LOC: REG 15:24 | PROVIDERS: ATTENDING PHYSICIAN Internal Medicine | DX: M54.6 Pain in thoracic spine (principal); R07.89 Other chest pain | CPT/HCPCS: 71111; 72072 ==

== ENCOUNTER 2025-05-12 06:52 | Outpatient (RCR) | payer MEDICARE, OTHER, SELFPAY | END 2025-05-12 23:59 | disposition home or self-care (01) | LOC: RPT 06:52 | PROVIDERS: ATTENDING PHYSICIAN Internal Medicine | DX: M54.6 Pain in thoracic spine (principal); M54.2 Cervicalgia; Z73.6 Limitation of activities due to disability; R26.2 Difficulty in walking, not elsewhere classified; M62.81 Muscle weakness (generalized); M48.54XD Collapsed vertebra, not elsewhere classified, thoracic region, subsequent encounter for fracture with routine healing; M81.0 Age-related osteoporosis without current pathological fracture | CPT/HCPCS: 97110; 97162 ==